=== PATIENT | female | born 1950 | race Caucasian/White ===

== ENCOUNTER 2022-03-16 14:45 | Outpatient (RCR) | payer MEDICARE, SELFPAY | END 2022-05-06 12:41 | disposition home or self-care (01) | PROVIDERS: PCP Physician Assistant Medical; Visit Provider Physician Assistant Medical | DX: M25.511 Pain in right shoulder (principal); Z51.89 Encounter for other specified aftercare | CPT/HCPCS: 97110; 97140; 97161 ==

== ENCOUNTER 2022-03-30 13:25 | Outpatient (CLI) | payer MEDICARE, SELFPAY ==
--- NOTE | 2022-03-30 13:40 | CRLHL7_ITS ---
For Patients: As a result of the Century Cures Act, medical imaging exams and procedure reports are released immediately into your electronic medical record. You may view this report before your referring provider. If you have questions, please contact your health care provider. BILATERAL SCREENING MAMMOGRAM WITH COMPUTER-AIDED DETECTION AND TOMOSYNTHESIS TECHNIQUE: CC and MLO views were obtained. These mammographic images have been obtained using full-field digital technique. These mammographic images were interpreted with the benefit of computer-aided detection. Breast Tomosynthesis was used in this interpretation. COMPARISON FILM: 07/16/20, 06/12/19, 03/10/18. FINDINGS: There are scattered areas of fibroglandular density IMPRESSION: There is no radiographic evidence for malignancy. ASSESSMENT: BI-RADS Category 1: Negative RECOMMENDATION: Routine screening mammogram in 1 year. A lay language report of this examination will be provided to the patient. Antonio Lazo M.D. Diagnostic Radiologist [email or web address] CARISSA/Dictated by: Antonio Lazo MD @ 03/31/2022 9:13:00 AM (Electronically Signed)
== END 2022-03-30 13:26 | disposition home or self-care (01) ==
LOC: MAMMO 13:26
PROVIDERS: PCP Physician Assistant Medical; Visit Provider Physician Assistant Medical
DX: Z12.31 Encounter for screening mammogram for malignant neoplasm of breast (principal)
CPT/HCPCS: 77063; 77067

== ENCOUNTER 2022-06-16 12:00 | Outpatient (CLI) | payer MEDICARE, SELFPAY ==
[2022-06-16 13:42] LABS: Albumin* 4.6 g/dL (3.3-5.0); Chloride* 105 mmol/L (96-114); Sodium* 141 mmol/L (135-149)
[2022-06-16 13:43] LABS: Potassium* 4.4 mmol/L (3.6-5.1)
[2022-06-16 13:45] LABS: Alkaline Phosphatase* 98 U/L (40-150); Aspartate Amino Transferase* 26 U/L (12-35); Bilirubin Total* 0.7 mg/dL (0.1-1.5); Blood Urea Nitrogen* 21 mg/dL (7-30); Carbon Dioxide* 27 mmol/L (20-32); Creatinine* 0.7 mg/dL (0.5-1.5); Estimated Glomerular Filt Rate 93 ml/min; Glucose* 197 mg/dL (60-115); Total Protein* 7.2 g/dL (6.0-8.3)
[2022-06-16 13:46] LABS: Alanine Aminotransferase* 32 U/L (4-35); Calcium* 11.1 mg/dL (8.4-10.6); HDL Cholesterol* 36 mg/dL (>=50); Triglycerides* 145 mg/dL (40-149)
[2022-06-16 14:52] LABS: TSH With Reflex to FT4* 0.021 uIU/mL (0.270-4.200)
[2022-06-16 16:06] LABS: Free T4 Free Thyroxine* 2.21 ng/dL (0.70-1.85)
[2022-06-17 19:05] LABS: Cholesterol* 111 mg/dL (90-199); LDL Cholesterol Calculated 46 mg/dL (<100)
== END 2022-06-16 12:01 | disposition home or self-care (01) ==
PROVIDERS: PCP Physician Assistant Medical; Visit Provider Physician Assistant Medical
DX: Z00.00 Encounter for general adult medical examination without abnormal findings (principal); E03.9 Hypothyroidism, unspecified; E11.9 Type 2 diabetes mellitus without complications; E78.5 Hyperlipidemia, unspecified; I10 Essential (primary) hypertension
CPT/HCPCS: 80053; 80061; 84439; 84443

== ENCOUNTER 2022-06-26 10:07 | Outpatient (CLI) | payer MEDICARE, SELFPAY | END 2022-06-26 10:08 | disposition home or self-care (01) | PROVIDERS: PCP Physician Assistant Medical; Visit Provider Physician Assistant Medical | DX: E83.52 Hypercalcemia | CPT/HCPCS: 82310; 83970; 84443 ==

== ENCOUNTER 2022-09-15 08:56 | Outpatient (CLI) | payer MEDICARE, SELFPAY | END 2022-09-15 08:57 | disposition home or self-care (01) | LOC: NFLDREF 09-16 00:12 | PROVIDERS: PCP Physician Assistant Medical; Referring Provider Physician Assistant Medical; Visit Provider Physician Assistant Medical | DX: E11.9 Type 2 diabetes mellitus without complications (principal); E03.9 Hypothyroidism, unspecified | CPT/HCPCS: 84443 ==

== ENCOUNTER 2023-01-19 08:31 | Outpatient (CLI) | payer MEDICARE, SELFPAY | END 2023-01-19 08:32 | disposition home or self-care (01) | LOC: NFLDREF 01-20 14:51 | PROVIDERS: PCP Physician Assistant Medical; Referring Provider Physician Assistant Medical; Visit Provider Physician Assistant Medical | DX: E03.9 Hypothyroidism, unspecified (principal); E11.9 Type 2 diabetes mellitus without complications; E78.5 Hyperlipidemia, unspecified; E83.52 Hypercalcemia; I10 Essential (primary) hypertension | CPT/HCPCS: 80053; 80061; 82043; 82570; 84439; 84443 ==

== ENCOUNTER 2023-04-06 09:54 | Outpatient (CLI) | payer MEDICARE, SELFPAY ==
--- NOTE | 2023-04-06 10:15 | CRLHL7_ITS ---
For Patients: As a result of the Cures Act, medical imaging exams and procedure reports are released immediately into your electronic medical record. You may view this report before your referring provider. If you have questions, please contact your health care provider. BILATERAL SCREENING MAMMOGRAM WITH COMPUTER-AIDED DETECTION AND TOMOSYNTHESIS TECHNIQUE: CC and MLO views were obtained. These mammographic images have been obtained using full-field digital technique. These mammographic images were interpreted with the benefit of computer-aided detection. Breast Tomosynthesis was used in this interpretation. COMPARISON FILM: 03/30/22, 07/15/20, 06/20/19. FINDINGS: There are scattered areas of fibroglandular density IMPRESSION: There is no radiographic evidence for malignancy. ASSESSMENT: BI-RADS Category 1: Negative RECOMMENDATION: Routine screening mammogram in 1 year. A lay language report of this examination will be provided to the patient. Antonio Lazo M.D. Diagnostic Radiologist [email or web address] ÓSCAR/mane R: 04/06/2023: Transcribed: 1:42 p.m. CARISSA/Dictated by: Antonio Lazo MD @ 04/06/2023 12:15:00 PM (Electronically Signed)
== END 2023-04-06 09:55 | disposition home or self-care (01) ==
LOC: MAMMO 09:54
PROVIDERS: PCP Physician Assistant Medical; Visit Provider Physician Assistant Medical
DX: Z12.31 Encounter for screening mammogram for malignant neoplasm of breast (principal)
CPT/HCPCS: 77063; 77067

== ENCOUNTER 2023-04-26 08:30 | Outpatient (CLI) | payer MEDICARE, SELFPAY | END 2023-04-26 08:31 | disposition home or self-care (01) | LOC: NFLDREF 04-28 12:09 | PROVIDERS: PCP Physician Assistant Medical; Referring Provider Physician Assistant Medical; Visit Provider Physician Assistant Medical | DX: E03.9 Hypothyroidism, unspecified (principal) | CPT/HCPCS: 84443 ==

== ENCOUNTER 2023-07-22 13:06 | Outpatient (CLI) | payer MEDICARE, SELFPAY | END 2023-07-22 13:07 | disposition home or self-care (01) | LOC: NFLDREF 07-23 05:51 | PROVIDERS: PCP Physician Assistant Medical; Referring Provider Physician Assistant Medical; Visit Provider Physician Assistant Medical | DX: E03.9 Hypothyroidism, unspecified (principal); E11.9 Type 2 diabetes mellitus without complications | CPT/HCPCS: 84439; 84443 ==

== ENCOUNTER 2023-10-18 19:45 | Inpatient (IN) | payer MEDICARE, SELFPAY ==
[2023-10-18] VITALS (8 sets, daily range): BP systolic 128–130; BP diastolic 62–90; PULSE 111–121; RESP 16–18; TEMP 38.4–39.3; O2SAT 93–97; BMI 27.4; BMI 28.3
--- NOTE | 2023-10-18 20:00 | ED_ITS ---
HPI - General Adult General Time Seen by Provider: 20:00 Date Seen: 10/18/23 Chief complaint: Fever Stated complaint: confusion, fall Time Seen by Provider: 10/18/23 19:46 Source: patient and RN notes reviewed Mode of arrival: ambulatory Limitations: no limitations History of Present Illness HPI narrative: This 73-year-old female was found down on the floor by a her bed after a nap. She went to take a nap about 5-6 hours ago per family that is with her, her found her next to the bed on the ground. Patient does not remember any issues with other than her right shoulder bothering her posteriorly before she went down for a nap. She does not remember falling out of bed she does not remember any falls. She declines any painful areas at this time. Initially the thought her speech seemed abnormal but her xfopezlu-pn-wij states she seems to be fine now as far as her speech. It is been found that she has a fever of 101.1. Patient states she has maybe been coughing. Her son who is present states there has been some changes to her diabetic medicines with dosage changes over the last couple months. She has had some intermittent nausea vomiting over that time. Related Data Home Medications Medication Instructions Recorded Confirmed aspirin 81 mg tablet,delayed 81 mg PO QDAY 01/26/22 05/11/23 release (Adult Aspirin Regimen) calcium carbonate 600 mg-vitamin 1 cap PO QDAY 01/26/22 05/11/23 D3 5 mcg (200 unit) capsule coenzyme Q10 100 mg capsule 100 mg PO QDAY 01/26/22 05/11/23 multivitamin 1 tab PO QDAY 01/26/22 05/11/23 omega 8-hfw-twg-fish oil 1,000 mg 1 cap PO QDAY 01/26/22 05/11/23 (120 mg-180 mg) capsule (Fish Oil) resveratrol-r.gray-dfchdbc-zslul 1 cap PO DAILY 01/26/22 05/11/23 sd-p.cusp.-C-pomg 200 mg-60 mg cap (Red Wine Extract) Previous Rx's Medication Instructions Recorded Diabetic Test Strips #100 ea 03/08/23 levothyroxine 137 mcg tablet 137 mcg PO QDAY #90 tabs 04/27/23 amlodipine 5 mg tablet 5 mg PO .HS #90 tabs 05/11/23 atorvastatin 20 mg tablet 20 mg PO QPM #90 tabs 05/11/23 metformin 1,000 mg tablet 1,000 mg PO BID #180 tabs 05/11/23 dulaglutide 1.5 mg/0.5 mL 1.5 mg (0.5 mL) subcut QWEEK #2 mL 05/18/23 subcutaneous pen injector (Trulicity) semaglutide 1 mg/dose (4 mg/3 mL) 1 mg (0.75 mL) subcut QWEEK 3 06/15/23 subcutaneous pen injector (Ozempic) months #9.75 mL trazodone 50 mg tablet 50 - 150 mg (1 - 3 x 50 mg) PO 06/28/23 DAILY #180 tabs irbesartan 300 mg tablet 300 mg PO QDAY #90 tabs 07/07/23 glipizide 10 mg tablet 10 mg PO BID #180 tabs 07/20/23 levothyroxine 125 mcg tablet 125 mcg PO QDAY #90 tabs 07/23/23 peg 3350-electrolytes 236 240 ml PO ONCE #4,000 mL 09/28/23 gram-22.74 gram-6.74 gram-5.86 gram solution (Golytely) Allergies Allergy/AdvReac Type Severity Reaction Status Date / Time lisinopril AdvReac Mild severe Verified 05/11/23 13:56 coughing Review of Systems Status of ROS: Reports: 6 or more systems reviewed and unremarkable except as noted in History and below (But question reliability given patient's fever seeming the altering her.) [facility] Medical History (Updated 10/18/23 @ 23:22 by Parag Knight MD) Sinus tachycardia ?R00.0 - Tachycardia, unspecified (ICD-10) Hypercalcemia ?E83.52 - Hypercalcemia (ICD-10) Insomnia ?G47.00 - Insomnia, unspecified (ICD-10) Osteopenia ?M85.80 - Other specified disorders of bone density and structure, unspecified site (ICD-10) Hypothyroidism ?E03.9 - Hypothyroidism, unspecified (ICD-10) Hypertension ?I10 - Essential (primary) hypertension (ICD-10) Hyperlipidemia ?E78.5 - Hyperlipidemia, unspecified (ICD-10) Diabetes mellitus, type II ?E11.9 - Type 2 diabetes mellitus without complications (ICD-10) Disorder of connective tissue ?M35.9 - Systemic involvement of connective tissue, unspecified (ICD-10) Surgical History History of colonoscopy ?Z98.890 - Other specified postprocedural states (ICD-10) History of Meckel's diverticulum ?Z87.19 - Personal history of other diseases of the digestive system (ICD-10) History of cervical polypectomy ?Z98.890 - Other specified postprocedural states (ICD-10) ?Z87.42 - Personal history of other diseases of the female genital tract (ICD-10) Family History Father Diabetes Social History What is your current living situation?: I presently have a place to live Problems where you live: no known problems Problems where you live details: NA In the past 12 months, utilities in danger of being shut off: no In past 12 months, lack of transportation kept you from medical appts, meetings, work, or getting things needed for daily living: no In the past 12 mos, have been you worried that your food would run out before you had money to buy more?: never true In the past 12 mos, the food you bought just didn't last and you didn't have money to buy more?: never true Highest level of school completed/degree received: Bachelor's degree Smoking Status: Never smoker Second hand tobacco smoke exposure: No How often do you have a drink containing alcohol: never AUDIT-C Alcohol total score: 0 Non-prescribed substance use: denies use Caffeine: No How often does anyone, including family, friends and others, physically hurt you : never How often does anyone, including family, friends and others, insult or talk down to you: never How often does anyone, including family, friends and others, threaten you with harm: never How often does anyone, including family, friends and others, scream or curse at you: never Little interest or pleasure in doing things: several days Feeling down, depressed, or hopeless: not at all service: No Exam Const: Vital Signs, click to edit/add: Vital Signs - 24 hr 10/18/23 19:51 10/18/23 20:28 10/18/23 20:30 Temperature 101.1 F H Pulse Rate 113 H 112 H Pulse Rate [Pulse Oximeter] 118 H Respiratory Rate 18 Blood Pressure [Ri ght Upper Arm] 130/62 Pulse Oximetry 94 97 96 Oxygen Delivery Me thod Room Air 10/18/23 20:49 10/18/23 22:16 Temperature Pulse Rate 111 H 121 H Pulse Rate [Pulse Oximeter] Respiratory Rate Blood Pressure [Ri ght Upper Arm] Pulse Oximetry 96 93 Oxygen Delivery Me thod This 73-year-old female is alert, interactive, no apparent distress. Her speech is normal. Pupils are equal round, sclera clear, conjugate gaze. Lips slightly dry, oropharynx dry without exudates or erythema however. Neck is supple, no adenopathy. She has no midline tenderness over her back, no traumatic changes over her back. Lungs are clear, good air entry, no wheezing or crackles, no tachypnea. CV regular rate and rhythm slightly fast, no murmur, normal S1-S2, no S3-S4. Abdomen is soft, nontender, nondistended, no organomegaly or masses. She has no lower extremity edema. She is moving extremities, following commands, no focal deficit of strength or sensation noted. No tremors noted. She does have a smell of urine. Documenting provider has reviewed patient's vital signs: yes Course Course ED Course: Will give patient some Tylenol for her fever. Proceed with plain x-rays of her chest and right shoulder. Need to rule out fracture of her shoulder. Shoulder pain could be coming from cardiac manifestations, chest etiology, trauma or even referred pain from GI issues like gallbladder. With the fever infectious etiology is of priority. Will do full complement of labs including blood cultures. Start L of normal saline. Given that she was found on the ground, will check a CK, will do a head CT and cervical spine CT noncontrast to rule out acute traumatic change with the imaging. Reevaluation(s) Time of Reevaluation #1: 22:07 Reevaluation #1: Patient's urinalysis is finally back, certainly appears to be positive for UTI. She is not hypotensive, 2 L of IV fluid have been ordered and with the antibiotics this will reach her 30 mils per kilos a which calculates to be 2040 mL. Patient is still alert, interactive. Have reviewed with them that she needs hospitalization for further monitoring. I do not feel we need any further imaging. Did subsequently speak with the hospitalist Dr. Knight, he will be down shortly to review the patient's case. Consultations Consultation #1: Have reviewed with Dr. Knight, he accepts the patient. Time: 22:22 Vital Signs Vital signs: Initial Vital Signs Temperature 101.1 F H 10/18/23 19:51 Temperature Source Temporal Artery Scan 10/18/23 19:51 Pulse Rate 118 H 10/18/23 19:51 Respiratory Rate 18 10/18/23 19:51 Blood Pressure 130/62 10/18/23 19:51 Blood Pressure Mean 84 10/18/23 19:51 Pulse Oximetry 94 10/18/23 19:51 Oxygen Delivery Method Room Air 10/18/23 19:51 Vital Signs Temperature 101.1 F H 10/18/23 19:51 Pulse Rate 118 H 10/18/23 19:51 Respiratory Rate 18 10/18/23 19:51 Blood Pressure 130/62 10/18/23 19:51 Pulse Oximetry 94 10/18/23 19:51 Oxygen Delivery Method Room Air 10/18/23 19:51 Temperature 102.7 F H 10/18/23 23:29 Pulse Rate 120 H 10/18/23 23:28 Respiratory Rate 16 10/18/23 23:40 Blood Pressure 128/90 H 10/18/23 23:29 Pulse Oximetry 94 10/18/23 23:40 Oxygen Delivery Method Room Air 10/18/23 23:40 Medications Administered Medications: Discontinued Medications Generic Name Dose Route Start Last Admin Trade Name Freq PRN Reason Stop Dose Admin Sodium Chloride 1,000 mls @ 500 mls/hr 10/18/23 20:06 10/18/23 22:20 0.9 % Sodium Chloride 1000 Ml IV 10/18/23 22:05 500 mls/hr .Q2H CANDICE Administration Sodium Chloride 1,000 mls @ 1,000 mls/hr 10/18/23 21:30 10/18/23 22:10 0.9 % Sodium Chloride 1000 Ml IV 10/18/23 22:29 1,000 mls/hr .Q1H CANDICE Administration Ceftriaxone Sodium 2 gm/ 100 mls @ 200 mls/hr 10/18/23 22:06 10/18/23 22:59 Sodium Chloride IVPB 10/18/23 22:07 Infused ONCE ONE Infusion Medical Decision Making Lab Data Lab results reviewed: Yes I reviewed the patient's lab results Labs: Lab Results 10/18/23 10/18/23 10/18/23 Range/Units 20:17 20:17 20:17 WBC 12.70 H (4.50-11.00) K/uL RBC 4.35 (4.00-5.20) m/uL Hgb 13.7 (12.0-16.0) gm/dL Hct 39.7 (33.0-51.0) % MCV 91 (80-100) fL MCH 32 (26-34) pg MCHC 35 (32-36) gm/dL RDW Coeff of Lise 12.1 (11.5-15.5) % Plt Count 209 (140-440) K/uL Neut % (Auto) 89.9 H (42.0-72.0) % Lymph % (Auto) 4.2 L (20-44) % [place] % (Auto) 5.5 (0.0-11.0) % Eos % (Auto) 0.0 (0.0-7.0) % Baso % (Auto) 0.1 (0.0-3.0) % Neut # (Auto) 11.40 H (1.7-7.0) K/uL Lymph # (Auto) 0.50 L (0.90-2.90) K/uL [place] # (Auto) 0.70 (0.00-0.90) K/UL Eos # (Auto) 0.00 (0.00-0.50) K/uL Baso # (Auto) 0.00 (0.00-0.30) K/uL Abs Immat Gran (auto) 0.00 (0.00-0.30) K/uL Imm/Tot Granulo (auto) 0.3 % Sodium 134 L (135-149) mmol/L Potassium 3.7 (3.6-5.1) mmol/L Chloride 104 (96-114) mmol/L Carbon Dioxide 22 (20-32) mmol/L Anion Gap 8 (7-15) mEq/L BUN 22 (7-30) mg/dL Creatinine 0.9 (0.5-1.5) mg/dL Estimated Creat Clear 40.22 Estimated GFR 68 ml/min Glucose 283 H (60-115) mg/dL Lactate 1.5 (0.5-1.9) mmol/L Calcium 10.5 (8.4-10.6) mg/dL Total Bilirubin 1.6 H (0.1-1.5) mg/dL AST 28 (12-35) U/L ALT 22 (4-35) U/L Alkaline Phosphatase 88 (40-150) U/L Total Creatine Kinase 85 Cancelled (41-117) U/L Troponin I < 0.01 L Cancelled (0.01-0.04) ng/mL C-Reactive Protein 25.5 H (0.5-1.0) mg/dL Total Protein 7.3 (6.0-8.3) g/dL Albumin 4.0 (3.3-5.0) g/dL Procalcitonin 1.38 H (<0.50) ng/mL Urine Color (Yellow) Urine Appearance (Clear) Urine pH (5.0-8.5) Ur Specific [place] (1.000-1.030) Urine Protein (Negative) Urine Glucose (UA) (Negative) Urine Ketones (Negative) Urine Blood (Negative) Urine Nitrite (Negative) Urine Bilirubin (Negative) Urine Urobilinogen (0.2-1.0) Ur Leukocyte Esterase (Negative) Urine RBC (0-2) Urine WBC (0-5) Ur Squamous Epith Cells (None-Few) Urine Bacteria (None) SARS-CoV-2 (PCR) Negative SARS-CoV-2 (Negative) Influenza Type A (PCR) Negative PCR FLU A (Negative) Influenza Type B (PCR) Negative PCR FLU B (Negative) RSV (PCR) Negative PCR RSV (Negative) 10/18/23 Range/Units 21:40 WBC (4.50-11.00) K/uL RBC (4.00-5.20) m/uL Hgb (12.0-16.0) gm/dL Hct (33.0-51.0) % MCV (80-100) fL MCH (26-34) pg MCHC (32-36) gm/dL RDW Coeff of Lise (11.5-15.5) % Plt Count (140-440) K/uL Neut % (Auto) (42.0-72.0) % Lymph % (Auto) (20-44) % [place] % (Auto) (0.0-11.0) % Eos % (Auto) (0.0-7.0) % Baso % (Auto) (0.0-3.0) % Neut # (Auto) (1.7-7.0) K/uL Lymph # (Auto) (0.90-2.90) K/uL [place] # (Auto) (0.00-0.90) K/UL Eos # (Auto) (0.00-0.50) K/uL Baso # (Auto) (0.00-0.30) K/uL Abs Immat Gran (auto) (0.00-0.30) K/uL Imm/Tot Granulo (auto) % Sodium (135-149) mmol/L Potassium (3.6-5.1) mmol/L Chloride (96-114) mmol/L Carbon Dioxide (20-32) mmol/L Anion Gap (7-15) mEq/L BUN (7-30) mg/dL Creatinine (0.5-1.5) mg/dL Estimated Creat Clear Estimated GFR ml/min Glucose (60-115) mg/dL Lactate (0.5-1.9) mmol/L Calcium (8.4-10.6) mg/dL Total Bilirubin (0.1-1.5) mg/dL AST (12-35) U/L ALT (4-35) U/L Alkaline Phosphatase (40-150) U/L Total Creatine Kinase (41-117) U/L Troponin I (0.01-0.04) ng/mL C-Reactive Protein (0.5-1.0) mg/dL Total Protein (6.0-8.3) g/dL Albumin (3.3-5.0) g/dL Procalcitonin (<0.50) ng/mL Urine Color Dark yellow (Yellow) Urine Appearance Cloudy A (Clear) Urine pH 5.0 (5.0-8.5) Ur Specific [place] 1.015 (1.000-1.030) Urine Protein 2+ A (Negative) Urine Glucose (UA) 3+ A (Negative) Urine Ketones 4+ A (Negative) Urine Blood 3+ A (Negative) Urine Nitrite Positive A (Negative) Urine Bilirubin Negative (Negative) Urine Urobilinogen 0.2 (0.2-1.0) Ur Leukocyte Esterase 2+ A (Negative) Urine RBC 2-5 A (0-2) Urine WBC >100 A (0-5) Ur Squamous Epith Cells Few (None-Few) Urine Bacteria Many A (None) SARS-CoV-2 (PCR) (Negative) Influenza Type A (PCR) (Negative) Influenza Type B (PCR) (Negative) RSV (PCR) (Negative) Imaging Data CT scan - head: Attestation: I have reviewed the pertinent imaging results. Radiologist's impression: Patient: UTE CARIAS Facility:?[facility] Patient ID:?[id number] Site Patient ID:?[id number] Site :?1950 Study:?CT-Head W/O-10/18/2023 9:17:45 PM Ordering Physician:EPYTON Final Report: INDICATION: Fall. Altered mental status. TECHNIQUE: CT head without contrast. COMPARISON: None available. FINDINGS: Cerebral parenchyma: No evidence of acute territorial infarct. 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 No acute intraparenchymal hemorrhage. No significant mass effect/midline shift. Normal diallo-white matter differentiation. Extra-axial spaces: No extra-axial collection or hemorrhage. Ventricles: Unremarkable. Calvarium: Intact. Visualized paranasal sinuses/mastoid air cells: Severe mucosal opacification of the left maxillary and frontal sinuses, and ethmoid air cells. Posterior fossa: No cerebellar tonsillar herniation. Visualized orbits: No acute abnormality. IMPRESSION: 1. No acute intracranial abnormality. Specifically, no evidence of acute intracranial hemorrhage. 2. 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 3. Left maxillary and left frontal sinusitis. Please note that all CT scans at this facility use dose modulation, iterative reconstruction, and/or weight-based dosing when appropriate to reduce radiation dose to as low as reasonably achievable. Dictated by Jannet Garcia MD @ 10/18/2023 9:35:49 PM (Electronic Signature) CT cervical spine: Attestation: I have reviewed the pertinent imaging results. Radiologist's impression: Patient: UTE CARIAS Facility:?[facility] Patient ID:?[id number] Site Patient ID:?[id number]. Site :?1950 Study:?CT-Spine Cervical W/O-10/18/2023 9:18:28 PM Ordering Physician:PEYTON Final Report: INDICATION: Trauma, fall. TECHNIQUE: CT cervical spine without contrast. COMPARISON: None FINDINGS: Vertebrae: Limited evaluation secondary to motion artifact and patient body habitus. No acute displaced fracture or traumatic malalignment. Discs and facet joints: Multilevel disc degenerative changes, worst at the level of C5-C6. There is fusion of the C2-C3 vertebral bodies as well as the facet joints. Extraspinal findings: Prevertebral soft tissues are within normal limits. Visualized airway is patent. Lung apices are grossly clear. IMPRESSION: No acute displaced fracture or traumatic malalignment, within limitations as described above. Please note that all CT scans at this facility use dose modulation, iterative reconstruction, and/or weight-based dosing when appropriate to reduce radiation dose to as low as reasonably achievable. Dictated by Jannet Garcia MD @ 10/18/2023 9:44:49 PM Chest x-ray: Attestation: I have reviewed the pertinent imaging results. Radiologist's impression: Patient: UTE CARIAS Facility:?[facility] Patient ID:?[id number] Site Patient ID:?[id number] Site :?1950 Study:?XRay-Chest 1V-10/18/2023 9:19:21 PM Ordering Physician:PEYTON Final Report: INDICATION: Altered mental status, found on floor, fever, chest injury fall TECHNIQUE: Chest radiograph 1 view COMPARISON: None FINDINGS: Mediastinum: The mediastinum is normal in appearance. The heart silhouette is normal in size and morphology. Lung: Small lung volumes with mild bibasilar subsegmental atelectasis noted. No sign of pleural effusion seen. No pneumothorax is identified. Bone and Soft tissue: Unremarkable for age. IMPRESSIONS: 1. Small lung volumes with mild bibasilar subsegmental atelectasis noted. 2. If there is a high clinical index of suspicion for rib injury, dedicated rib series radiographs are recommended. Dictated by Ramsey Parry MD @ 10/18/2023 9:29:12 PM Dictated by: Ramsey Parry MD @ 10/18/2023 21:32:24 (Electronic Signature) XR right shoulder: Attestation: I have reviewed the pertinent imaging results. Radiologist's impression: Patient: UTE CARIAS Facility:?[facility] Patient ID:?[id number] Site Patient ID:?[id number]. Site :?1950 Study:?XRay-Extremity Right SHOULDER 3V-10/18/2023 9:20:22 PM Ordering Physician:PEYTON Final Report: INDICATION: Altered mental status, found on floor, fever, shoulder pain, injury fall TECHNIQUE: Shoulder radiograph 3 views right COMPARISON: None FINDINGS: Bone: No acute fractures or aggressive bone lesions are identified. Moderate diffuse osteopenia is present. Joint: The glenohumeral joint is unremarkable. The acromioclavicular joint has mild osteoarthritis. Soft tissue: Unremarkable. A small focus of calcification is seen along the superior lateral rotator cuff which may be due to calcific tendinitis. No radiopaque foreign bodies are seen. IMPRESSIONS: 1. No acute osseous injuries or abnormalities are noted. 2. A small focus of calcification is seen along the superior lateral rotator cuff which may be due to calcific tendinitis. Dictated by Ramsey Parry MD @ 10/18/2023 9:33:38 PM Dictated by: Ramsye Parry MD @ 10/18/2023 21:33:40 (Electronic Signature) ECG Data Attestation: I personally reviewed and interpreted this ECG as follows: (Sinus tachycardia, 114 beats per minute.) Prior ECG tracings: not available for review Critical Care Time Critical Care Time Critical Care Time: No Discharge Plan Discharge Clinical Impression: Sepsis, Acute UTI
--- NOTE | 2023-10-18 20:05 | CT_ITS ---
Patient: UTE CARIAS Facility:?[facility] Patient ID:?[id number] Site Patient ID:?[id number] Site :?1950 Study:?CT-Head W/O-10/18/2023 9:17:45 PM Ordering Physician:PEYTON Final Report: INDICATION: Fall. Altered mental status. TECHNIQUE: CT head without contrast. COMPARISON: None available. FINDINGS: Cerebral parenchyma: No evidence of acute territorial infarct. 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 No acute intraparenchymal hemorrhage. No significant mass effect/midline shift. Normal diallo-white matter differentiation. Extra-axial spaces: No extra-axial collection or hemorrhage. Ventricles: Unremarkable. Calvarium: Intact. Visualized paranasal sinuses/mastoid air cells: Severe mucosal opacification of the left maxillary and frontal sinuses, and ethmoid air cells. Posterior fossa: No cerebellar tonsillar herniation. Visualized orbits: No acute abnormality. IMPRESSION: 1. No acute intracranial abnormality. Specifically, no evidence of acute intracranial hemorrhage. 2. 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 3. Left maxillary and left frontal sinusitis. Please note that all CT scans at this facility use dose modulation, iterative reconstruction, and/or weight-based dosing when appropriate to reduce radiation dose to as low as reasonably achievable. Dictated by Jannet Garcia MD @ 10/18/2023 9:35:49 PM Signed by:?Jannet Garcia MD @10/18/2023 9:35:49 PM (Electronic Signature)
--- NOTE | 2023-10-18 20:05 | CT_ITS ---
Patient: UTE CARIAS Facility:?[facility] Patient ID:?[id number] Site Patient ID:?[id number]. Site :?1950 Study:?CT-Spine Cervical W/O-10/18/2023 9:18:28 PM Ordering Physician:PEYTON Final Report: INDICATION: Trauma, fall. TECHNIQUE: CT cervical spine without contrast. COMPARISON: None FINDINGS: Vertebrae: Limited evaluation secondary to motion artifact and patient body habitus. No acute displaced fracture or traumatic malalignment. Discs and facet joints: Multilevel disc degenerative changes, worst at the level of C5-C6. There is fusion of the C2-C3 vertebral bodies as well as the facet joints. Extraspinal findings: Prevertebral soft tissues are within normal limits. Visualized airway is patent. Lung apices are grossly clear. IMPRESSION: No acute displaced fracture or traumatic malalignment, within limitations as described above. Please note that all CT scans at this facility use dose modulation, iterative reconstruction, and/or weight-based dosing when appropriate to reduce radiation dose to as low as reasonably achievable. Dictated by Jannet Garcia MD @ 10/18/2023 9:44:49 PM Signed by:?Jannet Garcia MD @10/18/2023 9:44:49 PM (Electronic Signature)
--- NOTE | 2023-10-18 20:05 | XR_ITS ---
Patient: UTE CARIAS Facility:?[facility] Patient ID:?[id number] Site Patient ID:?[id number] Site :?1950 Study:?XRay-Chest 1V-10/18/2023 9:19:21 PM Ordering Physician:PEYTON Final Report: INDICATION: Altered mental status, found on floor, fever, chest injury fall TECHNIQUE: Chest radiograph 1 view COMPARISON: None FINDINGS: Mediastinum: The mediastinum is normal in appearance. The heart silhouette is normal in size and morphology. Lung: Small lung volumes with mild bibasilar subsegmental atelectasis noted. No sign of pleural effusion seen. No pneumothorax is identified. Bone and Soft tissue: Unremarkable for age. IMPRESSIONS: 1. Small lung volumes with mild bibasilar subsegmental atelectasis noted. 2. If there is a high clinical index of suspicion for rib injury, dedicated rib series radiographs are recommended. Dictated by Ramsey Parry MD @ 10/18/2023 9:29:12 PM Dictated by: Ramsey Parry MD @ 10/18/2023 21:32:24 Signed by:?Ramsey Parry MD @10/18/2023 9:32:24 PM (Electronic Signature)
--- NOTE | 2023-10-18 20:07 | XR_ITS ---
Patient: UTE CARIAS Facility:?[facility] Patient ID:?[id number] Site Patient ID:?[id number]. Site :?1950 Study:?XRay-Extremity Right SHOULDER 3V-10/18/2023 9:20:22 PM Ordering Physician:PEYTON Final Report: INDICATION: Altered mental status, found on floor, fever, shoulder pain, injury fall TECHNIQUE: Shoulder radiograph 3 views right COMPARISON: None FINDINGS: Bone: No acute fractures or aggressive bone lesions are identified. Moderate diffuse osteopenia is present. Joint: The glenohumeral joint is unremarkable. The acromioclavicular joint has mild osteoarthritis. Soft tissue: Unremarkable. A small focus of calcification is seen along the superior lateral rotator cuff which may be due to calcific tendinitis. No radiopaque foreign bodies are seen. IMPRESSIONS: 1. No acute osseous injuries or abnormalities are noted. 2. A small focus of calcification is seen along the superior lateral rotator cuff which may be due to calcific tendinitis. Dictated by Ramsey Parry MD @ 10/18/2023 9:33:38 PM Dictated by: Ramsey Parry MD @ 10/18/2023 21:33:40 Signed by:?Ramsey Parry MD @10/18/2023 9:33:40 PM (Electronic Signature)
[2023-10-18 20:24] LABS: Lactate* 1.5 mmol/L (0.5-1.9)
[2023-10-18 20:25] LABS: Basophils Percent Auto 0.1 % (0.0-3.0); Hematocrit 39.7 % (33.0-51.0); Hemoglobin* 13.7 gm/dL (12.0-16.0); Immature Granulocytes Pct Auto 0.3 %; Lymphocytes Percent Auto 4.2 % (20-44); Mean Corpuscular HGB Conc 35 gm/dL (32-36); Mean Corpuscular Hemoglobin 32 pg (26-34); Mean Corpuscular Volume 91 fL (80-100); Monocytes Percent Auto 5.5 % (0.0-11.0); Neutrophils Percent Auto 89.9 % (42.0-72.0); Platelet Count* 209 K/uL (140-440); RDW Coefficient of Variation % 12.1 % (11.5-15.5); Red Blood Count 4.35 m/uL (4.00-5.20)
[2023-10-18 20:32] LABS: Slide Review Reflex No
[2023-10-18 20:58] LABS: Chloride* 104 mmol/L (96-114)
[2023-10-18 20:59] LABS: Potassium* 3.7 mmol/L (3.6-5.1); Sodium* 134 mmol/L (135-149)
[2023-10-18 21:01] LABS: Creatinine* 0.9 mg/dL (0.5-1.5); Est. Creatinine Clearance* 40.22; Estimated Glomerular Filt Rate 68 ml/min
[2023-10-18 21:02] LABS: Alanine Aminotransferase* 22 U/L (4-35); Alkaline Phosphatase* 88 U/L (40-150); Anion Gap 8 mEq/L (7-15); Aspartate Amino Transferase* 28 U/L (12-35); Bilirubin Total* 1.6 mg/dL (0.1-1.5); Blood Urea Nitrogen* 22 mg/dL (7-30); Calcium* 10.5 mg/dL (8.4-10.6); Carbon Dioxide* 22 mmol/L (20-32); Creatine Kinase* 85 U/L (41-117); Glucose* 283 mg/dL (60-115); Total Protein* 7.3 g/dL (6.0-8.3)
[2023-10-18 21:04] LABS: PCR FLU A Negative PCR FLU A (Negative); PCR FLU B Negative PCR FLU B (Negative); PCR RSV Negative PCR RSV (Negative); SARS PCR* Negative SARS-CoV-2 (Negative)
[2023-10-18 21:15] LABS: C Reactive Protein* 25.5 mg/dL (0.5-1.0); Troponin I* < 0.01 ng/mL (0.01-0.04)
[2023-10-18 21:19] LABS: Procalcitonin* 1.38 ng/mL (<0.50)
[2023-10-18 21:54] LABS: Appearance Urine Cloudy (Clear); Bilirubin Urine Negative (Negative); Blood Urine 3+ (Negative); Color Urine Dark yellow (Yellow); Glucose Urine 3+ (Negative); Ketones Urine 4+ (Negative); Leukocyte Esterase Urine 2+ (Negative); Nitrite Urine Positive (Negative); Protein Urine 2+ (Negative); Specific Gravity Urine 1.015 (1.000-1.030); Urobilinogen Urine 0.2 (0.2-1.0)
[2023-10-18] MEDS: 0.9 % SODIUM CHLORIDE 1000 ml 1,000 ML IV (22:10)
[2023-10-18] MEDS: 0.9 % SODIUM CHLORIDE 1000 ml 1,000 ML 500 ML IV (22:20)
[2023-10-18] MEDS: cefTRIAXone 2 GM in 0.9 % SODIUM CHLORIDE Mini-bag 100 ML IVPB (22:24)
[2023-10-18 22:25] LABS: WBC Urine >100 (0-5)
[2023-10-18 22:26] LABS: Bacteria Urine Many; Squamous Epithelial Cell Urine Few (None-Few)
--- NOTE | 2023-10-18 23:06 | P.IMHP_ITS ---
Hospitalist- H&P: HPI History of Present Illness Date Seen: 10/18/23 Chief complaint: confusion, fall Narrative: Denia Sanchez is a 73 year old woman presents to the emergency department this evening accompanied by her son and bikgakgu-[id number]. She has not been feeling well for the past day. Had some nausea and vomiting yesterday which is not an unusual phenomenon for her in which she ascribes to some of her medications. Today however she was feeling worn out and more sleepy and tired than usual. She took a nap in the afternoon and later her went to check on her and found her laying on the floor. Patient has no recall of falling out of bed. Does not remember much of today. No new complaints. Had right shoulder pain before she went to bed and still has the same quality and intensity of discomfort that she has had in the past which is minimal. Blood sugars have b een running between 140 and 180 which is typical for her. Denies fevers, rigors, diaphoresis. Denies dysuria, urgency, frequency, hematuria. Denies abdominal pain. Did have a few episodes of nausea and vomiting yesterday which is not unusual for her. None today. Has had decreased oral intake. Denies dyspepsia, dysphagia, odynophagia. Denies chest heaviness, pressure, tightness, or pain. Denies cough, dyspnea at rest, paroxysmal nocturnal dyspnea, orthopnea. Denies syncope or near-syncope. Denies orthostasis. Denies palpitations or chest fluttering. Acknowledges baseline elevated heart rates at rest with values of 100-110, longstanding condition for her. Denies diarrhea or constipation. States she is taking her medications as prescribed. No recent trauma or injury. No recent illness. No recent travel. No pets in the home. Review of Systems Status of ROS: Reports: 10 or more systems reviewed and unremarkable except as noted in History and below Narrative: Designates her , Yousif, as her primary power of state's attorney for health should that be required. Designates her son, Kit, as secondary power of state's attorney for health should that be required. Requests full resuscitation in the event of cardiopulmonary demise. [facility] Medical History (Updated 10/18/23 @ 23:22 by Parag Knight MD) Sinus tachycardia ?R00.0 - Tachycardia, unspecified (ICD-10) Hypercalcemia ?E83.52 - Hypercalcemia (ICD-10) Insomnia ?G47.00 - Insomnia, unspecified (ICD-10) Osteopenia ?M85.80 - Other specified disorders of bone density and structure, un specified site (ICD-10) Hypothyroidism ?E03.9 - Hypothyroidism, unspecified (ICD-10) Hypertension ?I10 - Essential (primary) hypertension (ICD-10) Hyperlipidemia ?E78.5 - Hyperlipidemia, unspecified (ICD-10) Diabetes mellitus, type II ?E11.9 - Type 2 diabetes mellitus without complications (ICD-10) Disorder of connective tissue ?M35.9 - Systemic involvement of connective tissue, unspecified (ICD-10) Surgical History History of colonoscopy ?Z98.890 - Other specified postprocedural states (ICD-10) History of Meckel's diverticulum ?Z87.19 - Personal history of other diseases of the digestive system (ICD-10) History of cervical polypectomy ?Z98.890 - Other specified postprocedural states (ICD-10) ?Z87.42 - Personal history of other diseases of the female genital tract (ICD-10) Family History Father Diabetes Social History Smoking Status: Never smoker Little interest or pleasure in doing things: several days Feeling down, depressed, or hopeless: not at all Meds Home Medications and Allergies Home Medications Medication Instructions Recorded Confirmed Type aspirin 81 mg tablet,delayed 81 mg PO QDAY 01/26/22 05/11/23 History release (Adult Aspirin Regimen) calcium carbonate 600 mg-vitamin 1 cap PO QDAY 01/26/22 05/11/23 History D3 5 mcg (200 unit) capsule coenzyme Q10 100 mg capsule 100 mg PO QDAY 01/26/22 05/11/23 History multivitamin 1 tab PO QDAY 01/26/22 05/11/23 History omega 4-cyf-hzm-fish oil 1,000 mg 1 cap PO QDAY 01/26/22 05/11/23 History (120 mg-180 mg) capsule (Fish Oil) resveratrol-rghassanjvcr-sdkedha-apzed 1 cap PO DAILY 01/26/22 05/11/23 History sd-p.cusp.-C-pomg 200 mg-60 mg cap (Red Wine Extract) Allergies Allergy/AdvReac Type Severity Reaction Status Date / Time lisinopril AdvReac Mild severe Verified 05/11/23 13:56 coughing Exam Narrative: Exam Narrative: I examined patient in the emergency department. She appears ill. She is awake, alert, interactive. Vision and hearing are adequate. Alert and oriented to self, place, time, situation at this time. Friendly and cooperative. Tympanic membranes normal. No conjunctival injection. No icterus. Conjugate gaze. Pupils equally round and reactive to light and accommodation. Dry buccal mucosa. Dentition in fair repair. Midline nasal septum. Midline trachea. Neck supple. No JVD or hepatojugular reflux. No carotid bruits. No head neck lymphadenopathy. Lungs are clear to auscultation. Chest wall excursions are full. No CVA tenderness. Heart tones with regular rhythm. Tachycardia. No obvious murmur, gallop, rub. PMI not laterally displaced. Abdomen with active bowel sounds, soft, nontender. No rebound or guarding. Extremities without edema. Skin is warm, dry, intact. No rashes. No focal motor neurologic deficits. Const: Vital Signs, click to edit/add: Vital Signs - 24 hr 10/18/23 19:51 10/18/23 20:28 10/18/23 20:30 Temperature 101.1 F H Pulse Rate 113 H 112 H Pulse Rate [Pulse Oximeter] 118 H Respiratory Rate 18 Blood Pressure [Ri ght Upper Arm] 130/62 Pulse Oximetry 94 97 96 Oxygen Delivery Me thod Room Air 10/18/23 20:49 10/18/23 22:16 Temperature Pulse Rate 111 H 121 H Pulse Rate [Pulse Oximeter] Respiratory Rate Blood Pressure [Ri ght Upper Arm] Pulse Oximetry 96 93 Oxygen Delivery Me thod Hospitalist - H&P: Result Labs Labs: Short CBC 10/18/23 Range/Units 20:17 WBC 12.70 H (4.50-11.00) K/uL Hgb 13.7 (12.0-16.0) gm/dL Hct 39.7 (33.0-51.0) % Plt Count 209 (140-440) K/uL BMP 10/18/23 20:17 Sodium 134 L Potassium 3.7 Chloride 104 Carbon Dioxide 22 BUN 22 Creatinine 0.9 Glucose 283 H Calcium 10.5 Cardiac Enzymes 10/18/23 10/18/23 10/18/23 Range/Units 20:17 20:17 20:17 Total Creatine Kinase 85 Cancelled (41-117) U/L Troponin I < 0.01 L Cancelled (0.01-0.04) ng/mL Liver Function 10/18/23 Range/Units 20:17 Total Bilirubin 1.6 H (0.1-1.5) mg/dL AST 28 (12-35) U/L ALT 22 (4-35) U/L Alkaline Phosphatase 88 (40-150) U/L Albumin 4.0 (3.3-5.0) g/dL Urine 10/18/23 Range/Units 21:40 Urine Color Dark yellow (Yellow) Urine Appearance Cloudy A (Clear) Urine pH 5.0 (5.0-8.5) Ur Specific [place] 1.015 (1.000-1.030) Urine Protein 2+ A (Negative) Urine Glucose (UA) 3+ A (Negative) ECG ECG interpretation date: 10/18/23 Interpretation: Sinus tachycardia without acute ischemic changes. Assessment and Plan Assessment and plan (1) Sepsis: Problem comment: - fever, tachycardia, leukocytosis, urinary tract infection based on urinalysis - 30 mL/kilogram IV fluid bolus given despite normal lactate - initiated ceftriaxone 1 g IV Q 24 hours - urine culture and blood cultures obtained and results are pending. Status: Acute (2) Acute UTI: Problem comment: - 10/18/2023: Abnormal urine analysis with ketones, nitrite, white blood cells Status: Acute (3) Sinus tachycardia: Problem comment: - baseline even at rest Status: Acute (4) Diabetes mellitus, type II: Problem comment: - check hemoglobin A1c - sliding scale insulin while in hospital Status: Acute Plan 1. Reviewed impression with patient, son, nncswfrv-sq-txs. 2. Answered their questions. 3. They agree with above stated plans and recommendations 4. In addition to the the 30 mL/kilogram of IV fluids, will run 1 more L of normal saline at 125 mL/hour then saline lock. 5. Monitor hemodynamics including orthostatic blood pressure and pulse, and daily weight. Total Time Spent Total Time Spent: 70 minute
[2023-10-18] MEDS: ACETAMINOPHEN 325 MG TABLET 650 MG PO (23:54)
[2023-10-19] VITALS (14 sets, daily range): BP systolic 107–142; BP diastolic 50–75; PULSE 93–115; RESP 16–28; TEMP 37.3–38.1; O2SAT 91–93
--- NOTE | 2023-10-19 00:05 | PC.NURSE ---
Pt came to floor with temp of 102.7, Dr notified, ordered Scheduled Tylenol. Bolus from ED to continue then fluids can start at 125/hr.
[2023-10-19] MEDS: ASPIRIN 81 MG TABLET EC PO ×2 (00:34→20:48)
[2023-10-19] MEDS: 0.9 % SODIUM CHLORIDE 1000 ml 1,000 ML 125 ML IV (01:02)
--- NOTE | 2023-10-19 03:53 | PC.NURSE ---
Pt came to Floor @ 2300. Pt was weak and fatigued with fever of 102.7. After Scheduled Tylenol and Fluids Temp came down to 99.2 oral. Pt Said she feels better than when she came in. Stable on feet. Sinus tach is a normal HR
--- NOTE | 2023-10-19 03:57 | PC.NURSE ---
Previous note stopped Typing. Normal HR is sinus tach for pt. Oriented x3.
[2023-10-19] MEDS: LEVOTHYROXINE 112 MCG TABLET PO (06:29)
[2023-10-19] MEDS: LEVOTHYROXINE 25 MCG TABLET PO (06:29)
[2023-10-19 06:56] LABS: HCO3 VBG 24 mmol/L (21-28); Lactate* 0.9 mmol/L (0.5-1.9); PCO2 VBG 39 mmHG (40-50); PO2 VBG < 30.1 mmHG (25-47); pH VBG 7.399 (7.32-7.43)
[2023-10-19 07:05] LABS: Basophils Absolute Auto 0.01 K/uL (0.00-0.30); Basophils Percent Auto 0.1 % (0.0-3.0); Hematocrit 32.8 % (33.0-51.0); Hemoglobin* 11.2 gm/dL (12.0-16.0); Immature Granulocytes Abs Auto 0.02 K/uL (0.00-0.30); Immature Granulocytes Pct Auto 0.2 %; Lymphocytes Percent Auto 6.8 % (20-44); Mean Corpuscular HGB Conc 34 gm/dL (32-36); Mean Corpuscular Hemoglobin 32 pg (26-34); Mean Corpuscular Volume 93 fL (80-100); Monocytes Percent Auto 7.1 % (0.0-11.0); Neutrophils Percent Auto 85.8 % (42.0-72.0); Platelet Count* 178 K/uL (140-440); RDW Coefficient of Variation % 12.4 % (11.5-15.5); Red Blood Count 3.53 m/uL (4.00-5.20); White Blood Count* 9.32 K/uL (4.50-11.00)
--- NOTE | 2023-10-19 07:13 | PM.IMPN1 ---
Progress Note: A&P Assessment and plan (1) Sepsis: Problem details: - as evidenced by WBC > 12, HR 110s, T 102 , + urine and blood cultures - 30 mL/kilogram IV fluid bolus given ED, fluids continued until hospital day 1 - initiated ceftriaxone 1 g IV Qd (10/17), broadened to Zosyn on 10/18 given + blood culture - B Cx + for GNR on 10/18 Status: Acute (2) Acute UTI: Problem details: - 10/18/2023: Abnormal urine analysis with ketones, nitrite, white blood cells Status: Acute (3) Sinus tachycardia: Problem details: - baseline HR in the 90s per chart review, possibly iatrogenic (hyperthyroidism) Status: Acute (4) Diabetes mellitus, type II: Problem details: - A1c 6.6 on 10/18/23 - sliding scale insulin while in hospital Status: Acute (5) Hypothyroidism: Problem details: - iatrogenic hyperthyroidism, stop Levothyroxine and f/u with PCP for recheck (given age, would consider appropriate TSH to be in the 5-7 range) Status: Acute Plan - per above - Lovenox for ppx - follow blood cultures; when medically appropriate, home with family Subjective Date Seen: 10/19/23 Interval history: Denia was admitted to the hospital last night for for fever, confusion, possible fall at home. Workup revealed sepsis with UTI is most likely source. Ceftriaxone was initiated IV. Also noted was suppressed TSH and elevated T4. This morning, Denia is feeling better. She has ordered breakfast and would like to try ambulating. Urine culture and 1/2 blood cultures + for GNRs. Exam Narrative: Exam Narrative: GEN: Alert and answering questions appropriately, shivering without rigors, appears ill but nontoxic HEENT: EOMIs bilaterally, no scleral icterus CV: Sinus tachycardia, soft systolic murmur without concerning features R: LCTA bilaterally without concerning wheezing Back: mild discomfort over bilateral flank regions Ext: wwp, no concerning edema Skin: No concerning skin lesions or rashes on exposed skin Neuro: No focal deficits, gait not observed Psych: Appropriate Const: Vital Signs, click to edit/add: Vital Signs - 24 hr 10/18/23 19:51 10/18/23 20:28 10/18/23 20:30 Temperature 101.1 F H Pulse Rate 113 H 112 H Pulse Rate [Left R adial] Pulse Rate [Pulse Oximeter] 118 H Pulse Rate [orthos tatic lying Left R adial] Pulse Rate [orthos tatic sitting Left Brachial] Pulse Rate [orthos tatic standing Lef t Radial] Respiratory Rate 18 Blood Pressure [Le ft Arm] Blood Pressure [Ri ght Upper Arm] 130/62 Blood Pressure [or thostatic lying Le ft Arm] Blood Pressure [or thostatic sitting] Blood Pressure [or thostatic standing Left Arm] Pulse Oximetry 94 97 96 Oxygen Delivery Me thod Room Air 10/18/23 20:49 10/18/23 22:16 10/18/23 23:28 Temperature 102.7 F H Pulse Rate 111 H 121 H Pulse Rate [Left R adial] 120 H Pulse Rate [Pulse Oximeter] Pulse Rate [orthos tatic lying Left R adial] Pulse Rate [orthos tatic sitting Left Brachial] Pulse Rate [orthos tatic standing Lef t Radial] Respiratory Rate 16 Blood Pressure [Le ft Arm] 128/90 H Blood Pressure [Ri ght Upper Arm] Blood Pressure [or thostatic lying Le ft Arm] Blood Pressure [or thostatic sitting] Blood Pressure [or thostatic standing Left Arm] Pulse Oximetry 96 93 94 Oxygen Delivery Me thod Room Air 10/18/23 23:29 10/18/23 23:40 10/19/23 02:23 Temperature 102.7 F H 99.2 F Pulse Rate Pulse Rate [Left R adial] 100 Pulse Rate [Pulse Oximeter] Pulse Rate [orthos tatic lying Left R adial] Pulse Rate [orthos tatic sitting Left Brachial] Pulse Rate [orthos tatic standing Lef t Radial] Respiratory Rate 16 16 16 Blood Pressure [Le ft Arm] 128/90 H 111/59 L Blood Pressure [Ri ght Upper Arm] Blood Pressure [or thostatic lying Le ft Arm] Blood Pressure [or thostatic sitting] Blood Pressure [or thostatic standing Left Arm] Pulse Oximetry 94 94 91 Oxygen Delivery Me thod Room Air Room Air Room Air 10/19/23 02:24 Temperature Pulse Rate Pulse Rate [Left R adial] Pulse Rate [Pulse Oximeter] Pulse Rate [orthos tatic lying Left R adial] 99 Pulse Rate [orthos tatic sitting Left Brachial] 102 H Pulse Rate [orthos tatic standing Lef t Radial] 104 H Respiratory Rate Blood Pressure [Le ft Arm] Blood Pressure [Ri ght Upper Arm] Blood Pressure [or thostatic lying Le ft Arm] 111/59 L Blood Pressure [or thostatic sitting] 115/55 L Blood Pressure [or thostatic standing Left Arm] 107/50 L Pulse Oximetry Oxygen Delivery Me thod Labs Labs: Laboratory Results - last 24 hr 10/18/23 10/18/23 10/18/23 20:17 20:17 20:17 WBC 12.70 H RBC 4.35 Hgb 13.7 Hct 39.7 MCV 91 MCH 32 MCHC 35 RDW Coeff of Lise 12.1 Plt Count 209 Neut % (Auto) 89.9 H Lymph % (Auto) 4.2 L [place] % (Auto) 5.5 Eos % (Auto) 0.0 Baso % (Auto) 0.1 Neut # (Auto) 11.40 H Lymph # (Auto) 0.50 L [place] # (Auto) 0.70 Eos # (Auto) 0.00 Baso # (Auto) 0.00 Abs Immat Gran (auto) 0.00 Imm/Tot Granulo (auto) 0.3 VBG pH VBG pCO2 VBG pO2 VBG HCO3 Sodium 134 L Potassium 3.7 Chloride 104 Carbon Dioxide 22 Anion Gap 8 BUN 22 Creatinine 0.9 Estimated Creat Clear 40.22 Estimated GFR 68 Glucose 283 H Lactate 1.5 Calcium 10.5 Total Bilirubin 1.6 H AST 28 ALT 22 Alkaline Phosphatase 88 Total Creatine Kinase 85 Cancelled Troponin I < 0.01 L Cancelled C-Reactive Protein 25.5 H Total Protein 7.3 Albumin 4.0 Procalcitonin 1.38 H Urine Color Urine Appearance Urine pH Ur Specific [place] Urine Protein Urine Glucose (UA) Urine Ketones Urine Blood Urine Nitrite Urine Bilirubin Urine Urobilinogen Ur Leukocyte Esterase Urine RBC Urine WBC Ur Squamous Epith Cells Urine Bacteria SARS-CoV-2 (PCR) Negative SARS-CoV-2 Influenza Type A (PCR) Negative PCR FLU A Influenza Type B (PCR) Negative PCR FLU B RSV (PCR) Negative PCR RSV 10/18/23 10/19/23 21:40 06:26 WBC RBC Hgb Hct MCV MCH MCHC RDW Coeff of Lise Plt Count Neut % (Auto) Lymph % (Auto) [place] % (Auto) Eos % (Auto) Baso % (Auto) Neut # (Auto) Lymph # (Auto) [place] # (Auto) Eos # (Auto) Baso # (Auto) Abs Immat Gran (auto) Imm/Tot Granulo (auto) VBG pH 7.399 VBG pCO2 39 L VBG pO2 < 30.1 VBG HCO3 24 Sodium Potassium Chloride Carbon Dioxide Anion Gap BUN Creatinine Estimated Creat Clear Estimated GFR Glucose Lactate 0.9 Calcium Total Bilirubin AST ALT Alkaline Phosphatase Total Creatine Kinase Troponin I C-Reactive Protein Total Protein Albumin Procalcitonin Urine Color Dark yellow Urine Appearance Cloudy A Urine pH 5.0 Ur Specific [place] 1.015 Urine Protein 2+ A Urine Glucose (UA) 3+ A Urine Ketones 4+ A Urine Blood 3+ A Urine Nitrite Positive A Urine Bilirubin Negative Urine Urobilinogen 0.2 Ur Leukocyte Esterase 2+ A Urine RBC 2-5 A Urine WBC >100 A Ur Squamous Epith Cells Few Urine Bacteria Many A SARS-CoV-2 (PCR) Influenza Type A (PCR) Influenza Type B (PCR) RSV (PCR)
[2023-10-19 07:16] LABS: Slide Review Reflex No
[2023-10-19] MEDS: ACETAMINOPHEN 325 MG TABLET 650 MG PO ×4 (07:49→20:48)
[2023-10-19] MEDS: glipiZIDE 5 MG TABLET 10 MG PO ×2 (07:49→17:18)
[2023-10-19] MEDS: INSULIN ASPART 100 UNIT/ML SUBCUT ×4 (07:53→20:59)
[2023-10-19 08:10] LABS: Hemoglobin A1C* 6.6 % (0-5.6)
[2023-10-19 08:26] LABS: Chloride* 109 mmol/L (96-114)
[2023-10-19 08:27] LABS: Potassium* 3.7 mmol/L (3.6-5.1); Sodium* 137 mmol/L (135-149)
[2023-10-19 08:29] LABS: Creatinine* 0.9 mg/dL (0.5-1.5); Est. Creatinine Clearance* 40.22; Estimated Glomerular Filt Rate 68 ml/min
[2023-10-19 08:30] LABS: Anion Gap 4 mEq/L (7-15); Blood Urea Nitrogen* 20 mg/dL (7-30); Calcium* 9.3 mg/dL (8.4-10.6); Carbon Dioxide* 24 mmol/L (20-32); Glucose* 180 mg/dL (60-115); Magnesium* 1.6 mg/dL (1.5-2.6); Phosphorus* 2.2 mg/dL (2.5-4.5)
[2023-10-19 08:35] LABS: Thyroid Stimulating Hormone* 0.132 uIU/mL (0.270-4.20)
[2023-10-19 08:46] LABS: Troponin I* < 0.01 ng/mL (0.01-0.04)
[2023-10-19] MEDS: IRBESARTAN 150 MG TABLET 300 MG PO (08:57)
--- NOTE | 2023-10-19 11:43 | REH.OT ---
Orders received for OT eval and treat. Patient up at melecio in room. No concerns with ADLs. No formal OT warranted.
--- NOTE | 2023-10-19 13:55 | CT_ITS ---
Patient: UTE CARIAS Facility:?[facility] Patient ID:?[id number] Site Patient ID:?[id number]. Site :?1950 Study:?CT-Abdomen/Pelvis W/O-10/19/2023 2:19:43 PM Ordering Physician:MAGALI FERNANDEZ Final Report: INDICATION: UTI, SEPSIS, EVALUATION FOR PYELO HX MECKELS DIVERTICULUM TECHNIQUE: CT abdomen and pelvis without contrast COMPARISON: None. FINDINGS: Kidney/ureters: Right proximal ureter/ureteropelvic junction there is a obstructing stone measuring 6 x 6 x 8 millimeters. This results in moderate to severe right-sided hydronephrosis with perinephric inflammation and edematous appearing kidney. There is also periureteral inflammation along the more distal ureter. Cannot exclude ascending urinary tract infection/pyelonephritis on this unenhanced CT given clinical indication. Punctate left nonobstructing intrarenal calculi are noted. No evidence of bladder wall thickening. Liver/gallbladder/bile ducts: The liver is normal in size, shape and attenuation. Cholelithiasis within a decompressed gallbladder. No biliary dilatation. Spleen/pancreas/adrenal glands: The spleen, adrenal glands and pancreas are within normal limits. GI tract: No bowel obstruction. Small duodenal diverticulum. Colonic diverticulosis without evidence of diverticulitis. Reported Meckel`s diverticulum is not well visualized on this unenhanced CT. Abdominal wall/omentum/peritoneum: No free air or significant free fluid. Lymph nodes: No lymphadenopathy. Pelvis: Calcified uterine fibroids. Lower chest: Linear bibasilar atelectasis. IMPRESSION: 1. Right proximal ureter/ureteropelvic junction there is a obstructing stone measuring 6 x 6 x 8 millimeters. This results in moderate to severe right-sided hydronephrosis with perinephric inflammation and edematous appearing kidney. There is also periureteral inflammation along the more distal ureter. Cannot exclude ascending urinary tract infection/pyelonephritis on this unenhanced CT given clinical indication. 2. Colonic diverticulosis without evidence of diverticulitis. 3. Calcified uterine fibroids. Please note that all CT scans at this facility use dose modulation, iterative reconstruction, and/or weight-based dosing when appropriate to reduce radiation dose to as low as reasonably achievable. Dictated by Fred Gorman MD @ 10/19/2023 2:44:11 PM Signed by:?Fred Gorman MD @10/19/2023 2:44:11 PM (Electronic Signature)
[2023-10-19] MEDS: PIPERACILLIN/TAZOBACTAM 3.375 GM in 0.9 % SODIUM CHLORIDE Mini-bag 100 ML IVPB ×2 (14:25→19:57)
--- NOTE | 2023-10-19 15:46 | XR_ITS ---
Patient: UTE CARIAS Facility:?[facility] Patient ID:?[id number] Site Patient ID:?[id number] Site :?1950 Study:?XRay-Chest 1 VIEW PORTABLE-10/19/2023 5:51:41 PM Ordering Physician:EULALIA Final Report: INDICATION: Short of breath. TECHNIQUE: Chest 1 portable view. COMPARISON: 10/18/2023. FINDINGS: No pneumothorax or pleural effusion. Mild linear scarring or atelectasis in the right mid lung and bilateral lung bases. No focal airspace consolidation. Mild enlargement of the cardiac silhouette may be related to portable technique. No definite pulmonary edema. Upper abdomen and osseous structures as imaged show no acute abnormality. IMPRESSION: No radiographic evidence of pneumonia. Dictated by Shaw Freeman MD @ 10/19/2023 6:14:43 PM Signed by:?Shaw Freeman MD @10/19/2023 6:14:43 PM (Electronic Signature)
[2023-10-19] MEDS: METFORMIN 1,000 MG TABLET 1000 MG PO (17:18)
--- NOTE | 2023-10-19 19:00 | PC.NURSE ---
End of Shift: The patient is pleasant and alert and orientated. VS on RA... febrile throughout the shift. Scheduled Tylenol was given with adequate relief intermittently. This afternoon the patient was noticed to be tachypneic @ 28 per min. O2 % was reassuring at 88-90%. The patient reported flank pain in her R back.. the high respirations and flank pain were reported to Dr Andujar ultrasound was completed and then chest xray was ordered by Dr Montilla. Incentive spirometer education was provided. IV abx were changed after culture came back positive. UP SBA with no walker. Calls appropriately. Tolerating a diet well... poor PO intake IV fluids remain @ 125 hr. Angelic LEHMAN BSN
[2023-10-19 19:48] LABS: NT Pro B Type NatriureticPept* 370 pg/mL
[2023-10-19] MEDS: ATORVASTATIN 10 MG TABLET 20 MG PO (20:48)
[2023-10-19] MEDS: TRAZODONE HCL 50 MG TABLET PO (20:49)
[2023-10-19] MEDS: ENOXAPARIN 40 MG/0.4 ML INJ SUBCUT (20:49)
[2023-10-20] MEDS: PIPERACILLIN/TAZOBACTAM 3.375 GM in 0.9 % SODIUM CHLORIDE Mini-bag 100 ML IVPB ×3 (02:03→14:24)
[2023-10-20 02:59] VITALS: BP 128/69; PULSE 89; RESP 24; TEMP 38.1; O2SAT 91
[2023-10-20 06:51] LABS: Lactate* 0.6 mmol/L (0.5-1.9)
--- NOTE | 2023-10-20 06:52 | PC.NURSE ---
End of shift note [id number]: Pt noted to be alert & oriented and able to make needs known. She transfers/ambulates with SBA. IV to to L forearm patent and SL. Pt noted to have temp of 100.6 with 0300 vital signs. Pt remains on IV antibiotic. She remains on scheduled Tylenol and has been denying pain when asked throughout the shift. Blood glucose of 190 at HS last evening. Pt slept well throughout the night and has been continent of bowel and bladder.
[2023-10-20 07:11] LABS: Basophils Absolute Auto 0.02 K/uL (0.00-0.30); Basophils Percent Auto 0.4 % (0.0-3.0); Eosinophils Absolute Auto 0.06 K/uL (0.00-0.50); Eosinophils Percent Auto 1.1 % (0.0-7.0); Hematocrit 31.5 % (33.0-51.0); Hemoglobin* 10.8 gm/dL (12.0-16.0); Immature Granulocytes Abs Auto 0.01 K/uL (0.00-0.30); Immature Granulocytes Pct Auto 0.2 %; Lymphocytes Percent Auto 12.3 % (20-44); Mean Corpuscular HGB Conc 34 gm/dL (32-36); Mean Corpuscular Hemoglobin 31 pg (26-34); Mean Corpuscular Volume 91 fL (80-100); Monocytes Percent Auto 6.1 % (0.0-11.0); Neutrophils Percent Auto 79.9 % (42.0-72.0); Platelet Count* 178 K/uL (140-440); RDW Coefficient of Variation % 12.3 % (11.5-15.5); Red Blood Count 3.45 m/uL (4.00-5.20); White Blood Count* 5.59 K/uL (4.50-11.00)
[2023-10-20 07:12] VITALS: PULSE 95
[2023-10-20 07:19] LABS: Slide Review Reflex No
[2023-10-20 07:20] LABS: Albumin* 2.9 g/dL (3.3-5.0); Chloride* 112 mmol/L (96-114); Potassium* 3.2 mmol/L (3.6-5.1); Sodium* 139 mmol/L (135-149)
[2023-10-20 07:22] LABS: Creatinine* 0.7 mg/dL (0.5-1.5); Est. Creatinine Clearance* 40.22; Estimated Glomerular Filt Rate 92 ml/min
[2023-10-20 07:23] LABS: Alanine Aminotransferase* 45 U/L (4-35); Alkaline Phosphatase* 76 U/L (40-150); Anion Gap 5 mEq/L (7-15); Aspartate Amino Transferase* 51 U/L (12-35); Bilirubin Total* 0.7 mg/dL (0.1-1.5); Blood Urea Nitrogen* 16 mg/dL (7-30); Carbon Dioxide* 22 mmol/L (20-32); Glucose* 123 mg/dL (60-115); Total Protein* 5.8 g/dL (6.0-8.3)
[2023-10-20 07:24] LABS: Calcium* 9.4 mg/dL (8.4-10.6)
[2023-10-20 08:00] VITALS: BP 149/66; PULSE 89; PULSE 99; RESP 24; TEMP 37.6; O2SAT 91
--- NOTE | 2023-10-20 08:24 | P.DS_ITS ---
Transfer Discharge Sum: Prov Provider Date Seen: 10/20/23 Date of admission: 10/18/23 23:27 Primary care physician: Aixa Cary PA-C Admitting clinician: Parag Knight Attending physician on admission: Parag Knight Consults: 10/18/23 23:27 Consult to Occupational Therapy [CONS] Routine Comment: Reason(s) for OT Consult:: Evaluate and Treat Any Restrictions?:: No Restrictions Consult to Physical Therapy [CONS] Routine Comment: Reason(s) for PT Consult:: Evaluate and Treat Any Restrictions?:: No Restrictions Attending physician on discharge: Delilah Andujar Discharging clinician: Delilah Andujar Anticipated date of transfer: 10/20/23 Receiving physician/facility: [facility] DS: Diagnosis Discharge Diagnosis (1) Sepsis: Status: Acute Problem details: - as evidenced by WBC > 12, HR 110s, T 102 , + urine and blood cultures - 30 mL/kilogram IV fluid bolus given ED, fluids continued until hospital day 1 - initiated Ceftriaxone (10/17), broadened to Zosyn on 10/18 given + blood culture - Urine culture + for E Coli (2) Nephrolithiasis: Status: Acute Problem details: - noted on CT, formal read below: 1. Right proximal ureter/ureteropelvic junction there is a obstructing stone measuring 6 x 6 x 8 millimeters. This results in moderate to severe right-sided hydronephrosis with perinephric inflammation and edematous appearing kidney. There is also periureteral inflammation along the more distal ureter. Cannot exclude ascending urinary tract infection/pyelonephritis on this unenhanced CT given clinical indication. 2. Colonic diverticulosis without evidence of diverticulitis. 3. Calcified uterine fibroids. (3) Acute UTI: Status: Acute Problem details: - E Coli (4) Diabetes mellitus, type II: Status: Acute Problem details: - A1c 6.6 on 10/18/23 - sliding scale insulin while in hospital (5) Hypothyroidism: Status: Acute Problem details: - per chart review, TSH has been suppressed since October 2022 - likely iatrogenic hyperthyroidism, was on 137mcg of Synthroid as an outpatient - stopped Levothyroxine on 10/17, f/u TSH with PCP in 4-6 weeks (consider goal TSH 4-6 given age) Transfer Discharge Sum: Med Medications Active and Home Medications: Home Medications aspirin 81 mg tablet,delayed release (Adult Aspirin Regimen) 81 mg PO DAILY 01/26/22 [History Confirmed 10/19/23] calcium carbonate 600 mg-vitamin D3 5 mcg (200 unit) capsule 1 cap PO DAILY 01/26/22 [History Confirmed 10/19/23] coenzyme Q10 100 mg capsule 100 mg PO DAILY 01/26/22 [History Confirmed 10/19/23] multivitamin 1 tab PO DAILY 01/26/22 [History Confirmed 10/19/23] omega 9-eeg-pfm-fish oil 1,000 mg (120 mg-180 mg) capsule (Fish Oil) 1 cap PO DAILY 01/26/22 [History Confirmed 10/19/23] resveratrol-r.dkhp-zpyneqn-mmwiw sd-p.cusp.-C-pomg 200 mg-60 mg cap (Red Wine Extract) 1 cap PO DAILY 01/26/22 [History Confirmed 10/19/23] Diabetic Test Strips #100 ea 03/08/23 [Rx Confirmed 05/11/23] atorvastatin 20 mg tablet 20 mg PO QPM #90 tabs 05/11/23 [Rx Confirmed 10/19/23] semaglutide 1 mg/dose (4 mg/3 mL) subcutaneous pen injector (Ozempic) 1 mg (0.75 mL) subcut QWEEK 3 months #9.75 mL 06/15/23 [Rx Confirmed 10/19/23] trazodone 50 mg tablet 50 - 150 mg (1 - 3 x 50 mg) PO DAILY #180 tabs 06/28/23 [Rx Confirmed 10/19/23] glipizide 10 mg tablet 10 mg PO BID #180 tabs 07/20/23 [Rx Confirmed 10/19/23] peg 3350-electrolytes 236 gram-22.74 gram-6.74 gram-5.86 gram solution (Golytely) 240 ml PO ONCE #4,000 mL 09/28/23 [Rx Confirmed 10/19/23] amlodipine 5 mg tablet 5 mg PO HS 10/19/23 [History Confirmed 10/19/23] irbesartan 300 mg tablet 300 mg PO DAILY 10/19/23 [History Confirmed 10/19/23] levothyroxine 125 mcg tablet 125 mcg PO .qod #45 tabs 10/19/23 [Rx] levothyroxine 137 mcg tablet 137 mcg PO .qod #45 tabs 10/19/23 [Rx Confirmed 10/19/23] metformin 1,000 mg tablet 1,000 mg PO BIDWM 10/19/23 [History Confirmed 10/19/23] Active Medications Acetaminophen (Acetaminophen 325 Mg Tablet) 650 mg PO QID [facility] Last Admin: 10/19/23 20:48 Dose: 650 mg Aspirin (Aspirin 81 Mg Tablet Ec) 81 mg PO 2100 [facility] Last Admin: 10/19/23 20:48 Dose: 81 mg Atorvastatin Calcium (Atorvastatin 10 Mg Tablet) 20 mg PO HS [facility] Last Admin: 10/19/23 20:48 Dose: 20 mg Enoxaparin Sodium (Enoxaparin 40 Mg/0.4 Ml Inj) 40 mg [facility]BCUT [facility] Last Admin: 10/19/23 20:49 Dose: 40 mg Glipizide (Glipizide 5 Mg Tablet) 10 mg PO BIDWM [facility] Last Admin: 10/19/23 17:18 Dose: 10 mg Piperacillin Sod/Tazobactam (Sod 3.375 gm/ Sodium Chloride) 100 mls @ 200 mls/hr IVPB Q6H [facility] Last Infusion: 10/20/23 02:47 Dose: Infused Insulin Aspart (Insulin Aspart 100 Unit/Ml) 0 unit SUBCUT [facility]; Protocol Last Admin: 10/19/23 20:59 Dose: 2 unit Irbesartan (Irbesartan 150 Mg Tablet) 300 mg PO DAILY [facility] Last Admin: 10/19/23 08:57 Dose: 300 mg Metformin HCl (Metformin 1,000 Mg Tablet) 1,000 mg PO BIDWM [facility] Last Admin: 10/19/23 17:18 Dose: 1,000 mg Sodium Chloride (Sodium Chloride 0.9 % (Flush) 10 Ml Syringe) 5 ml IVF .FLUSH PRN Sodium Chloride (Sodium Chloride 0.9 % (Flush) 10 Ml Syringe) 5 ml IVF BID [facility] Last Admin: 10/19/23 20:49 Dose: Not Given Trazodone HCl (Trazodone Hcl 50 Mg Tablet) 50 - 150 mg PO HS [facility] Last Admin: 10/19/23 20:49 Dose: 100 mg Transfer Discharge Sum: Hosp Hospital Course Hospital course: Denia Sanchez is a 73 year old female who presented to the hospital with fever and confusion on 10/18/23, had clinical s/sx of sepsis with + UTI. Treated with IVF resuscitation, Ceftriaxone empirically initiated. On hospital day 1, had + Blood (/2) and Urine culture for GNR, antibiotics broadened to Zosyn. Given persistent fevers and mild bilateral flank pain, CT obtained to evaluate for pyelonephritis and patient was found to have an obstructing UPJ stone. Urology consulted (Dr. Bermeo) given findings, and patient will be transferred to [facility] for further management. She is NPO (had 3 sips of hot chocolate at 0745 on 10/20/23) and has been accepted by the hospitalist team (Dr. Vaughn) for transfer. Other notable findings during stay are above. Time Spent with Patient Time attestation: Total time spent providing and/or coordinating transfer services: Total time spent: Greater than 30 minutes Exam Narrative: Exam Narrative: GEN: Alert and sitting comfortably in bedside chair HEENT: EOMIs bilaterally, no scleral icterus CV: RRR, No concerning murmurs R: LCTA bilaterally without concerning wheezing, air movement adequate Ext: wwp, no concerning edema Skin: No concerning skin lesions or rashes on exposed skin Neuro: Nonfocal Psych: Appropriate Const: Vital Signs, click to edit/add: Vital Signs - 24 hr 10/19/23 10:51 10/19/23 13:09 10/19/23 14:30 Temperature 99.5 F 99.8 F H 99.6 F Pulse Rate Pulse Rate [Left R adial] 104 H 115 H Respiratory Rate 16 28 H Blood Pressure [Le ft Arm] 108/53 L Blood Pressure [Ri ght Arm] 142/67 H Pulse Oximetry 93 92 Oxygen Delivery Me thod Room Air 10/19/23 15:00 10/19/23 15:00 10/19/23 15:45 Temperature Pulse Rate 114 H Pulse Rate [Left R adial] Respiratory Rate 28 H 28 H Blood Pressure [Le ft Arm] Blood Pressure [Ri ght Arm] Pulse Oximetry 93 Oxygen Delivery Me thod Room Air 10/19/23 17:19 10/19/23 19:50 10/19/23 23:00 Temperature 99.7 F H 99.8 F H Pulse Rate Pulse Rate [Left R adial] 97 93 Respiratory Rate 24 22 Blood Pressure [Le ft Arm] Blood Pressure [Ri ght Arm] 125/59 L Pulse Oximetry 91 Oxygen Delivery Me thod Room Air 10/19/23 23:12 10/19/23 23:15 10/19/23 23:20 Temperature 99.4 F Pulse Rate 95 Pulse Rate [Left R adial] 93 Respiratory Rate 22 22 Blood Pressure [Le ft Arm] Blood Pressure [Ri ght Arm] 137/75 Pulse Oximetry 93 93 Oxygen Delivery Me thod Room Air Room Air 10/20/23 02:59 10/20/23 07:12 Temperature 100.6 F H Pulse Rate 95 Pulse Rate [Left R adial] 89 Respiratory Rate 24 Blood Pressure [Le ft Arm] Blood Pressure [Ri ght Arm] 128/69 Pulse Oximetry 91 Oxygen Delivery Me thod Room Air Discharge Plan Discharge Disposition: Xfer Other Date of Admission: 10/18/23 23:27 Attending Provider on Discharge: Delilah Andujar Primary Care Provider: Aixa Cary Condition: Guarded Anticipated Discharge Date/Time: 10/20/23 13:01 Discharge Medications: Continued calcium carbonate-vitamin D3 600 mg-5 mcg (200 unit) capsule 1 cap PO DAILY coenzyme Q10 100 mg capsule 100 mg PO DAILY omega 0-ead-zek-fish oil [Fish Oil] 1,000 mg (120 mg-180 mg) capsule 1 cap PO DAILY htincc-zku-ouq-qaxbf-vtl-I-pom [Red Wine Extract] 200-60 mg capsule 1 cap PO DAILY multivitamin Tablet 1 tab PO DAILY Held atorvastatin 20 mg tablet 20 mg PO QPM Qty: 90 3RF Hold Instructions: Resume on 10/22/23. until d/c from [facility] amlodipine 5 mg tablet 5 mg PO HS Hold Instructions: Resume on 10/22/23. metformin 1,000 mg tablet 1,000 mg PO BIDWM Hold Instructions: Resume on 10/22/23. npo irbesartan 300 mg tablet 300 mg PO DAILY Hold Instructions: Resume on 10/22/23. npo aspirin [Adult Aspirin Regimen] 81 mg tablet,delayed release (DR/EC) 81 mg PO DAILY Hold Instructions: Resume on 10/22/23. until d/c from [facility] Ozempic 1 mg/dose (4 mg/3 mL) pen injector 1 mg subcut QWEEK 90 Days Qty: 9.75 3RF Hold Instructions: Resume on 10/27/23. until post [facility] hospitalization trazodone 50 mg tablet 50 - 150 mg PO DAILY Qty: 180 2RF Hold Instructions: Resume on 10/22/23. npo glipizide 10 mg tablet 10 mg PO BID Qty: 180 0RF Hold Instructions: Resume on 10/22/23. NPO Discontinued peg 3350-electrolytes [Golytely] 236-22.74-6.74 -5.86 gram recon soln 240 ml PO ONCE Qty: 4000 0RF Rx Instructions: 4pm day prior to procedure. Drink 8oz glass every 15 minutes until 1/2 of solution is gone. 6 hours prior to procedure drink 8 oz glass every 15 minutes until remaining solution gone. levothyroxine 137 mcg tablet 137 mcg PO .qod Qty: 45 0RF levothyroxine 125 mcg tablet 125 mcg PO .qod Qty: 45 0RF Rx Instructions: Alternate daily with 137mcg of levothyroxine. No Action (DME) Diabetic Test Strips Misc See Rx Instructions .Route Qty: 100 3RF Rx Instructions: As directed Discharge Orders: Discharge Order (Routine); Ordered 10/20/23 Ordered By: Delilah Andujar Additional Instructions: to [facility] Diet Detail: npo for transfer Follow Up Appointments: Aixa Cary PA-C [Primary Care Provider] - Forms: MyHealth Info Instructions
[2023-10-20 09:14] VITALS: TEMP 37.6
[2023-10-20] MEDS: ACETAMINOPHEN 325 MG TABLET 650 MG PO ×2 (09:14→13:26)
[2023-10-20] MEDS: SODIUM CHLORIDE 0.9 % (FLUSH) 10 ML SYRINGE 5 ML IVF (09:14)
[2023-10-20 11:10] VITALS: BP 131/70; PULSE 92; RESP 24; TEMP 36.9; O2SAT 92
[2023-10-20 13:06] VITALS: TEMP 36.9
[2023-10-20] MEDS: POTASSIUM CHLORIDE 10 MEQ, LIDOCAINE 1 % 1 ML in 0.9 % SODIUM CHLORIDE 100 ml 100 ML 106 MEQ IVPB (13:26)
--- NOTE | 2023-10-20 14:41 | PC.NURSE ---
Pt. will be transferring to [facility] this afternoon. Xqttc-we-pfuyl report given to Nurse Taylor at [facility] - [facility] 1847.
--- NOTE | 2023-10-20 17:28 | PC.NURSE ---
Discharge. Pt was transferred to [place] @ 1522 by [facility]. Pt is very pleasant. alert x4, pain in flanks 4-6/10. she is getting po tylenol and she did not want anything else. She is up with SBA. IV to to L forearm patent. on IV antibiotic. . Blood sugar of 111, and 139 and pt was happy about that. she is NPO. she is voiding with no problems.
== END 2023-10-20 17:22 | disposition short-term general hospital (02) | DRG 872 ==
LOC: ED 20:16 → MEDSURG 23:01
PROVIDERS: Family Medicine; Admitting Provider Internal Medicine; Emergency Provider Family Medicine; PCP Physician Assistant Medical; Visit Provider Internal Medicine
DX: A41.51 Sepsis due to Escherichia coli [E. coli] (principal); N39.0 Urinary tract infection, site not specified; Z16.24 Resistance to multiple antibiotics; N13.2 Hydronephrosis with renal and ureteral calculous obstruction; R00.0 Tachycardia, unspecified; B96.20 Unspecified Escherichia coli [E. coli] as the cause of diseases classified elsewhere; E11.9 Type 2 diabetes mellitus without complications; Z79.84 Long term (current) use of oral hypoglycemic drugs; Z79.85 Long-term (current) use of injectable non-insulin antidiabetic drugs; E03.9 Hypothyroidism, unspecified
CPT/HCPCS: 36415; 70450; 71045; 72125; 73030; 74176; 80048; 80053; 81001; 82550; 82803; 82962; 83036; 83605; 83735; 83880; 84100; 84145; 84439; 84443; 84484; 85025; 86140; 87040; 87086; 87186; 87631; 93005; 94761; 97116; 97161; 99284; 99285; A9270; J0696; J1650; J2543; J3480; J7030

== ENCOUNTER 2023-10-20 15:20 | Outpatient (CLI) | payer MEDICARE, SELFPAY | END 2023-10-20 15:21 | disposition home or self-care (01) | LOC: AMB 10-28 02:50 | PROVIDERS: PCP Physician Assistant Medical; Visit Provider Family Medicine | DX: N20.0 Calculus of kidney (principal); A41.9 Sepsis, unspecified organism | CPT/HCPCS: A0425; A0429 ==

== ENCOUNTER 2023-11-02 10:24 | Outpatient (CLI) | payer MEDICARE, SELFPAY | END 2023-11-02 10:25 | disposition home or self-care (01) | LOC: NFLDREF 11-21 21:44 | PROVIDERS: PCP Physician Assistant Medical; Referring Provider Physician Assistant Medical; Visit Provider Physician Assistant Medical | DX: N39.0 Urinary tract infection, site not specified (principal) | CPT/HCPCS: 87086 ==

== ENCOUNTER 2023-12-14 14:16 | Outpatient (CLI) | payer MEDICARE, SELFPAY | END 2023-12-14 14:17 | disposition home or self-care (01) | LOC: NFLDREF 12-17 06:00 | PROVIDERS: PCP Physician Assistant Medical; Referring Provider Physician Assistant Medical; Visit Provider Physician Assistant Medical | DX: A41.9 Sepsis, unspecified organism (principal); Z09 Encounter for follow-up examination after completed treatment for conditions other than malignant neoplasm | CPT/HCPCS: 83735 ==

== ENCOUNTER 2023-12-28 19:16 | Outpatient (CLI) | payer MEDICARE, SELFPAY | END 2023-12-28 19:17 | disposition home or self-care (01) | LOC: NFLDREF 12-31 03:21 | PROVIDERS: PCP Physician Assistant Medical; Referring Provider Physician Assistant Medical; Visit Provider Physician Assistant | DX: N39.0 Urinary tract infection, site not specified (principal); R31.9 Hematuria, unspecified; B96.20 Unspecified Escherichia coli [E. coli] as the cause of diseases classified elsewhere | CPT/HCPCS: 87086; 87186 ==

== ENCOUNTER 2024-01-11 14:21 | Outpatient (CLI) | payer MEDICARE, SELFPAY | END 2024-01-11 14:22 | disposition home or self-care (01) | LOC: NFLDREF 01-12 11:14 | PROVIDERS: PCP Physician Assistant Medical; Referring Provider Physician Assistant Medical; Visit Provider Physician Assistant | DX: R31.9 Hematuria, unspecified (principal); N39.0 Urinary tract infection, site not specified; R11.10 Vomiting, unspecified; H92.09 Otalgia, unspecified ear; R11.11 Vomiting without nausea | CPT/HCPCS: 87086; 87186 ==

== ENCOUNTER 2024-01-27 14:27 | Outpatient (CLI) | payer MEDICARE, SELFPAY | END 2024-01-27 14:28 | disposition home or self-care (01) | LOC: LKVREF 14:28 | PROVIDERS: PCP Physician Assistant Medical; Visit Provider Nurse Practitioner Family | DX: N39.0 Urinary tract infection, site not specified (principal); E11.9 Type 2 diabetes mellitus without complications; E05.00 Thyrotoxicosis with diffuse goiter without thyrotoxic crisis or storm | CPT/HCPCS: 84439; 84443; 87086; 87186 ==

== ENCOUNTER 2024-02-15 09:40 | Outpatient (CLI) | payer MEDICARE, SELFPAY ==
--- NOTE | 2024-02-15 10:00 | CRLHL7_ITS ---
For Patients: As a result of the Century Cures Act, medical imaging exams and procedure reports are released immediately into your electronic medical record. You may view this report before your referring provider. If you have questions, please contact your health care provider. Indication: UTI. HX OF STONES/ LITHOTRIPSY AND STENT NOW REMOVED. Technique: Noncontrast CT abdomen and pelvis Please note that all CT scans at this facility use dose modulation, iterative reconstruction, and/or weight-based dosing when appropriate to reduce radiation dose to as low as reasonably achievable. Comparison: 10/19/2023 Findings: Interval clearing of the previously noted stone from the proximal right ureter and resolution of right-sided urinary tract obstruction. Stone within the left proximal ureter is present which measures 3.5 millimeters and there is left hydronephrosis and proximal left hydroureter. Adrenal glands normal. Stones in the gallbladder again noted. Noncontrast enhanced liver unremarkable. Normal spleen. Pancreas within normal limits. Duodenal diverticulum. No adenopathy. Calcified uterine fibroid. No bladder stone. Sigmoid diverticulosis. No diverticulitis. No bowel obstruction. Mild scarring in both lung bases. No pleural effusion. No fracture. No enlarged lymph nodes. Impression: Clearing of the previously noted right proximal ureteral stone with resolution of the right-sided hydroureteronephrosis. 3.5 millimeter stone in the left proximal ureter with left-sided obstruction. Sigmoid diverticulosis. Cholelithiasis. Please note that all CT scans at this facility use dose modulation, iterative reconstruction, and/or weight-based dosing when appropriate to reduce radiation dose to as low as reasonably achievable. Dictated by Antonio Lazo MD @ 02/15/2024 3:54:31 PM (Electronically Signed)
== END 2024-02-15 09:41 | disposition home or self-care (01) ==
PROVIDERS: PCP Nurse Practitioner Family; Visit Provider Physician Assistant
DX: N39.0 Urinary tract infection, site not specified (principal); K57.30 Diverticulosis of large intestine without perforation or abscess without bleeding; K80.20 Calculus of gallbladder without cholecystitis without obstruction
CPT/HCPCS: 74176

== ENCOUNTER 2024-03-09 16:30 | Outpatient (CLI) | payer MEDICARE, SELFPAY | END 2024-03-09 16:31 | disposition home or self-care (01) | LOC: NFLDREF 03-12 18:50 | PROVIDERS: PCP Nurse Practitioner Family; Referring Provider Nurse Practitioner Family; Visit Provider Physician Assistant | DX: N39.0 Urinary tract infection, site not specified (principal) | CPT/HCPCS: 87086 ==

== ENCOUNTER 2024-04-07 09:53 | Outpatient (CLI) | payer MEDICARE, SELFPAY ==
--- NOTE | 2024-04-07 10:15 | CRLHL7_ITS ---
For Patients: As a result of the Century Cures Act, medical imaging exams and procedure reports are released immediately into your electronic medical record. You may view this report before your referring provider. If you have questions, please contact your health care provider. BILATERAL SCREENING MAMMOGRAM WITH COMPUTER-AIDED DETECTION AND TOMOSYNTHESIS TECHNIQUE: CC and MLO views were obtained. These mammographic images have been obtained using full-field digital technique. These mammographic images were interpreted with the benefit of computer-aided detection. Breast Tomosynthesis was used in this interpretation. COMPARISON FILM: 04/06/23, 03/20/22, 07/16/20. FINDINGS: There are scattered areas of fibroglandular density IMPRESSION: There is no radiographic evidence for malignancy. ASSESSMENT: BI-RADS Category 1: Negative RECOMMENDATION: Routine screening mammogram in 1 year. A lay language report of this examination will be provided to the patient. Antonio Lazo M.D. Diagnostic Radiologist [email or web address] CARISSA/Dictated by: Antonio Lazo MD @ 04/07/2024 11:37:00 AM (Electronically Signed)
== END 2024-04-07 09:54 | disposition home or self-care (01) ==
LOC: MAMMO 09:55
PROVIDERS: PCP Nurse Practitioner Family; Visit Provider Nurse Practitioner Family
DX: Z12.31 Encounter for screening mammogram for malignant neoplasm of breast (principal)
CPT/HCPCS: 77063; 77067

== ENCOUNTER 2024-04-20 09:50 | Outpatient (CLI) | payer MEDICARE, SELFPAY ==
--- NOTE | 2024-04-20 11:26 | P.ANES_ITS ---
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
== END 2024-04-20 09:51 | disposition home or self-care (01) ==
LOC: OP CLINIC 09:50
PROVIDERS: PCP Nurse Practitioner Family; Visit Provider Surgery
DX: Z12.11 Encounter for screening for malignant neoplasm of colon (principal); Z86.0100 Personal history of colon polyps, unspecified; D12.8 Benign neoplasm of rectum; K57.30 Diverticulosis of large intestine without perforation or abscess without bleeding
CPT/HCPCS: 00811; 45385; 88305; 99100; J2704

== ENCOUNTER 2024-05-31 13:16 | Outpatient (CLI) | payer MEDICARE, SELFPAY | END 2024-05-31 13:17 | disposition home or self-care (01) | LOC: LKVREF 13:17 | PROVIDERS: PCP Nurse Practitioner Family; Visit Provider Nurse Practitioner Family | DX: E78.2 Mixed hyperlipidemia (principal); E11.9 Type 2 diabetes mellitus without complications; Z79.84 Long term (current) use of oral hypoglycemic drugs | CPT/HCPCS: 80061; 82043; 82570 ==

== ENCOUNTER 2024-10-19 07:45 | Outpatient (CLI) | payer MEDICARE, SELFPAY | END 2024-10-19 07:46 | disposition home or self-care (01) | LOC: NFLDREF 10-27 18:37 | PROVIDERS: PCP Nurse Practitioner Family; Referring Provider Nurse Practitioner Family | DX: N39.0 Urinary tract infection, site not specified (principal); B96.89 Other specified bacterial agents as the cause of diseases classified elsewhere | CPT/HCPCS: 87086 ==

== ENCOUNTER 2024-11-15 09:50 | Outpatient (CLI) | payer MEDICARE, SELFPAY | END 2024-11-15 09:51 | disposition home or self-care (01) | LOC: NFLDREF 11-17 22:10 | PROVIDERS: PCP Nurse Practitioner Family; Referring Provider Nurse Practitioner Family; Visit Provider Nurse Practitioner Family | DX: N39.0 Urinary tract infection, site not specified (principal); B69.89 Cysticercosis of other sites | CPT/HCPCS: 87086 ==

== ENCOUNTER 2025-04-22 17:08 | Emergency (ER) | payer MEDICARE, SELFPAY ==
[2025-04-22 17:10] VITALS: BP 156/74; PULSE 84; RESP 18; TEMP 36; O2SAT 97; BMI 29.3
--- OUTSIDE RECORDS SUMMARY | 2025-04-22 17:10 | XMS_ITS | Clinical Summary ---
Author Organization [facility] Address [address] [place] [address] Care Team Providers Care [employer] Name Role Phone Paul Campos MD Primary Care Provider Source Comments You are receiving this document as you are listed as the primary care provider,follow-up provider, or the patient has been referred to you for consultation.This is in compliance with the Medicare and[facility] EHR Incentive Program,which states Providers who transition their patient to another setting of careor provider of care or refers their patient to another provider of care shouldprovide summary care record for each transition of care or referral. [facility] Allergies Active Allergy Reactions Criticality Noted Date Comments Lisinopril Other, see comments 12/11/2013 HUT Reaction: Cough Active Problems Problem Noted Date Diagnosed Date Current use of aspirin 04/16/2017 Osteopenia of both thighs 10/27/2016 Overview (04/13/2019): DEXA 05/30/2012: Lumbar T score -0.5, femoral neck T score -1.6, total femur T score -1.3 DEXA October 2016: Lumbar T score -0.8, left hip -1.6, right hip -2.0 - continue calcium and vitamin D and consider recheck in 2 years. Obesity, diabetes, and hypertension syndrome 03/2017 History of colon polyps 08/08/2015 Overview (04/13/2019): 07/2011 - 1 sessile cecal polyp, Hyperplastic Polyp. Diabetic eye exam 10/11/2014 Overview (04/13/2019): PRIMARY EYE CARE, 12/11/16 - No diabetic Retinopathy HCD (health care directive) 07/11/2013 Overview (04/14/2019): HCD at home, family has copy Connective tissue disease Overview (04/14/2019): NOS, positive MAGALY Hypothyroidism Dyslipidemia HTN (hypertension) Type 2 diabetes mellitus wit hout complication, without long-term current use of insulin Resolved Problems Problem Noted Date Diagnosed Date Resolved Date Routine general medical exam ination at a health care facility 03/10/2010 12/11/2014 Overview (04/13/2019): Normal Routine History And Physical Adult Metabolic syndrome 8 Immunizations Immunization Administration Dates Next Due Influenza IIV3 (Trivalent) F luzomichael Highdose, 65+ Yrs (66100) 03/18/2017 Influenza IIV4 (Quadrivalent) 0.5mL (56711) 02/13,03/14/2015,02/12/2014 Influenza aIIV3 65+ Years (Fluad) 03/29/2017 Influenza, Unspecified Formulation 02/13/2012, PCV13 (Prevnar) 10/15/2016 PPSV23 (Pneumovax) 10/29/2017,07/12/2012 Tdap 04/23/2010 Zoster (Zostavax) 03/24/2012 Family History Medical History Relation Name Comments Diabetes Father Hypertension Father Other Father Glaucoma Heart Failure Mother Hypertension Mother Osteoporosis Mother Hypertension Brother Cooper Other Maternal Grandfather kidney cancer Other Maternal Grandmother bladder cancer Cancer Maternal Uncle 3 Cancer, Prostate Maternal Uncle 4 Cancer, Breast Other 2 Cousin x 3, m om's side Cancer Paternal Uncle 2 Good Health Son 1 Homero Good Health Son 2 Shaw Good Health Son 3 Rush Relation Name Status Comments Father Mother 06/2016 Brother Dallas Alive Maternal Grandfather Maternal Grandmother (Age 95) tu mor on esophagus Maternal Uncle 1 Maternal Uncle 2 Maternal Uncle 3 Maternal Uncle 4 Other 1 Other 2 Paternal Grandfather threshi ng accident Paternal Grandmother MVA Paternal Uncle 1 Paternal Uncle 2 Son 1 Homero Alive Son 2 Shaw Alive Son 3 Rush Alive Social History Tobacco Use Types Packs/Day Years Used Date Smoking Tobacco: Never Smokeless Tobacco: Never Alcohol Use Standard Drinks/Week Comments Yes 2 (1 standard drink = 0.6 oz pur e alcohol) occasional Comments No Sex and Gender Information Value Date Recorded Sex Assigned at Not on file Legal Sex Female 6:56 AM CDT Gender Identity Not on file Sexual Orientation Not on file Last Filed Vital Signs Vital Sign Reading Time Taken Comments Blood Pressure 142/84 05/10/2015 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 Pulse - - Temperature 36.6 C (97.8 F) 05/10/2015 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 Respiratory Rate - - Oxygen Saturation - - Inhaled Oxygen Concentration - - Weight 83.7 kg (184 lb 9.6 oz) 05/10/2015 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 Height - - Body Mass Index - - Plan of Treatment Health Maintenance Due Date Last Done Comments Colonoscopy 1951 Diabetes: Albumin/Creatinine Ratio, Urine 1950 Diabetes: Creatinine 1950 Diabetes: Foot Exam 1950 Diabetes: HGBA1C 1950 Diabetes: Lipid Panel 1950 Hep B Immunization Discussion 1950 Hep C Screening (Preventive Services) 1950 Medicare Welcome Visit 1950 Pneumococcal PCV20 Immunization Discussion 1950 Mammogram 1950 Zoster/Shingles Vaccine (2 of 3) 05/19/2012 03/24/2012 Diabetes: Eye Exam 10/12/2015 10/11/2014 (C ompleted), 10/03/2013 (Completed), 09/13/2012 (Completed) DTaP/Tdap/Td Vaccine (2 - Tdap) 04/23/2020 04/23/2010 COVID-19 Vaccine ( - season) 2025 Influenza Vaccine (#1) 2025 7, 03/18/2017, 03/11/2016, Additional history exists RSV Vaccine (1 - 1-dose 75+ series) 2026 Pneumococcal Vaccine 50+ Yrs Completed , 10/15/2016, 07/12/2012 HepA Vaccine Aged Out No longer eligi ble based on patient's age to complete this topic HepB Vaccine Aged Out No longer eligi ble based on patient's age to complete this topic Hib Vaccine Aged Out No longer eligi ble based on patient's age to complete this topic IPV (Polio) Vaccine Aged Out No longe r eligible based on patient's age to complete this topic MCV4 Vaccine Aged Out No longer eligi ble based on patient's age to complete this topic Meningococcal B Vaccine Aged Out No l onger eligible based on patient's age to complete this topic Insurance [employer] [address] [place] [id number] Care Teams [employer]er [employer] Relationship Specialty Start Date End Date Paul Campos MD [address] [place] [address] [place] [id number] PCP - General 04/07/12
--- OUTSIDE RECORDS SUMMARY | 2025-04-22 17:10 | XMS_ITS | Data Portability ---
Author Organization [place] [facility] Address [address] [place] [address] Care Team Providers Care Fisher Name Role Phone MERI CULP Primary Care Provider Assessment Encounter Date Assessment Date Assessment LastModified by Organization Details LastModified Time 10/24/2023 10/24/2023 This visit was performed via [employer] device with a total face to face time of 7.5 minutes. This patient is being seen today for a [facility] appointment after hospitalization. *Reason for admission: UTI, nephrolithiasis *I have reviewed the external medical records: Hospital discharge summary from (hospital system/practice) ___[facility]__, on (date of service) _10/22/23_. Specifically, the data/test result/record I reviewed was: ___hospital discharge summary___. *The following comorbid health conditions pertinent to this [facility] visit were discussed, diagnoses were added, and current status documented: HTN The patient needs a follow up appointment with urology within a few weeks. The patient needs a follow up appointment with PCP within 5 days, she plans to contact them tomorrow. *The following referrals were submitted today: none. SSMILE High Risk area for hospital readmission *SYMPTOMS Does the patient have ongoing or worsening symptoms? No, low risk for readmission. *SKILLED NEEDS Does the patient have unaddressed skilled needs? No, low risk for readmission. *MEDICATIONS Is the patient/caregiver able to describe current medication management strategy? No, the patient is at risk for readmission. Reconciliation and Management: Hard copy discharge medication list provided by patient was reviewed and reconciled during this encounter with patient's current medications. A face to face medication reconciliation was completed during today's visit. No changes were made to the patient's medication regimen today The patient verbalized understanding of the dosage and timing of their medications and understands the need to take their medications as prescribed. I had the opportunity to answer any questions regarding their medications. *INFORMATION Does the patient/caregiver/ MPOA have understanding of disease/discharge information/treatm ent plan/red flag symptoms? Yes, low risk for readmission. *LINKED UP Does the patient understand the appropriate providers to follow up with: Yes, low risk for readmission. Does the patient have access to healthcare, food, social support? Yes, low risk for readmission. Resources available through [facility]. *ENGAGEMENT Is the patient/caregiver/ MPOA engaged in the care plan? Yes, low risk for readmission. *After reviewing records, medications, understanding for the plan of care, physical exam, and SSMILE Risk score, and it is determined the patient is safe to remain at home and is left in stable condition. *Additional patient instructions: Continue current medications, follow up with PCP as scheduled. I gave detailed care plan instructions, submitted appropriate referrals as needed, and answered all questions. The patient verbalizes understanding and agrees with the plan. The patient is advised to seek [facility], or in the ER for new or worsening symptoms. Notes from the visit were sent to the patient's PCP. Proper Personal Protective Equipment (PPE), including gloves and surgical mask were donned and doffed appropriately and all equipment cleaned using approved technique with germicidal disposable wipes prior to and after care of this patient according to [facility]'s infection prevention protocols. Time On Scene with Patient: 01:30:38 [email or web address] Not available 10/24/2023 14:00:01 Plan of Treatment Reminders Order Date Submit Date Provider Last Modified By Organization Details Last Modified Time Details Appointments None record ed. Lab None record ed. Referral None record ed. Procedures None record ed. Surgeries None record ed. Imaging None record ed. Medication Orders None record ed. Patient TargetsNo targets recorded. Patient Instructions Encounter Date Encounter Id Patient Instructions Last Modified By Organization Details Last Modified Time 10/24/2023 [id number] When to access different levels of care: When to use Primary Care: For preventative care- care that keeps you healthy Help you understand your health conditions or illnesses When you are sick and your doctor's office is open For routine shots like those that prevent pneumonia, flu and tetanus Physical exams When to use [facility]: When you are sick or injured when your primary care provider (PCP) is closed, or unable to see you that day If you feel you need urgent care services to treat an illness or injury If you are unable to leave your house or arrange for transportation to your doctor's office [facility] is part of your healthcare team. [facility] can treat your illnesses or injuries when your doctor is unable to see you in their office, and on weekends and holidays when your doctor's office is closed. Call [facility] if your doctor can't see you or if you have questions about where to get care. When to use the emergency Department: Bleeding that will not stop Hard time breathing Seizures Chest pain Stroke symptoms Car accidents If you feel like you are having a life threatening emergency, call 911 or go directly to the Emergency department [email or web address] Not available 10/24/2023 13:38:33 Reason for Referral None Reported. Procedures Surgical History Date Name Laterality Status Provider Name and Address Organization Details Recorded Time 10/24/19 24 Medication Review completed DENITA WALDROP NP [address] [facility] [address] ,[address], [place], [address], [place] [facility] 10/24/2023 13:38:10 Imaging Results None recorded. Procedure Notes None recorded. Medical Equipment None Reported. Allergies Allergen ID Allergen Name Allergen Category Reaction Reaction Severity Criticality Documentation Date Start Date Code Code System Note Provider Name and Address Organization Details Recorded Time 187535 lisinopri l medicatio n cough Not available low 10/24/2023 70641 [facility] Melvin b[place], [place] - [facility] 4 12:54:20 Medications Name Sig Start Date Stop Date Status Note LastModified by Organization Details LastModified Time levothyroxi ne 137 mcg tablet TAKE 1 TABLET BY MOUTH EVERY DAY active Not Available Not Available No t Available atorvastati n 20 mg tablet TAKE 1 TABLET BY MOUTH EVERY DAY EVERY EVENING active Not Available Not Available No t Available trazodone 50 mg tablet TAKE 1-3 TABLETS BY MOUTH DAILY active Not Available Not Available No t Available glipizide 10 mg tablet TAKE 1 TABLET TWICE A DAY active Not Available Not Available No t Available amlodipine 5 mg tablet TAKE 1 TABLET BY MOUTH EVERY DAY AT BEDTIME active Not Available Not Available No t Available metformin 1,000 mg tablet TAKE 1 TABLET BY MOUTH TWICE A DAY active Not Available Not Available No t Available levothyroxi ne 125 mcg tablet TAKE 1 TABLET BY MOUTH ONCE DAILY active Not Available Not Available No t Available levothyroxi ne 150 mcg tablet TAKE 1 TABLET BY MOUTH EVERY OTHER DAY 10/23 completed Not Available Not Available Not Available cefdinir 300 mg capsule active Not Available Not Available Not Available irbesartan 300 mg tablet TAKE 1 TABLET BY MOUTH EVERY DAY active Not Available Not Available No t Available Contour Test Strips TEST 2 TIMES DAILY WITH MEALS DIRECTED active Not Available Not Available No t Available CoQ-10 200mg 2020 active Not Available Not Available Not Avai lable GaviLyte-G 236 gram-22.74 gram-6.74 gram-5.86 gram oral solution PLEASE SEE ATTACHED FOR DETAILED DIRECTION S 10/23 completed Not Available Not Available Not Available Ozempic 1 mg/dose (4 mg/3 mL) subcutaneou s pen injector INJECT 1MG SUBCUTANE OUSLY EVERY WEEK FOR 3 MONTHS active Not Available Not Available No t Available Ozempic 0.25 mg or 0.5 mg (2 mg/3 mL) subcutaneou s pen injector 0.5 MG (0.736 ML) SUBCUTANE OUSLY EVERY WEEK FOR 3 MONTHS 10/23 completed Not Available Not Available Not Available Vitals Date Recorded Respiratory rate Body temperature Heart rate Oxygen saturation Oxygen saturation in Arterial blood by Pulse oximetry Systolic And Diastolic Provider Name and Address Organization Details Last Updated DateTime 4 14 /min 97.6 [degF] 84 /min 98 % 98 % 134/62 mm[Hg] Not Available [facility] 4 12:45:23 Social History Question Answer Notes LastModified by Organizat ion Details LastModified Time Tobacco Smoking Status Never Smoker MOI Castañeda - [facility] 10/24/2023 13:12:21 Do You Have An Advance Directive? Yes Information not available 10/24/2023 What Is Your Advocate's Name? Vicente oh Information not available 10/24/2023 What Is Your Relation To The Advocate? Information not available 10/24/2023 What Is The Name Of Your Alternate Advocate? Homero [email or web address] Information not available 10/24/2023 Is Blood Transfusion Acceptable In An Emergency? Yes [email or web address] Information not available 10/24/2023 What Is Your Code Status? Full Code [email or web address] Information not available 10/24/2023 Do You Have A Directive To Physicians? No [email or web address] Information not available 10/24/2023 Within The Past 12 Months, Has It Happened That The Food You Bought Just Didn't Last And You Didn't Have Money To Get More. Never True Information not available 10/24/2023 Within The Past 12 Months, Have You Worried That Your Food Would Run Out Before You Got Money To Buy More. Never True [email or web address] Information not available 10/24/2023 Fall Risk: Do You Feel Unsteady When Standing Or Walking? No [email or web address] Information not available 10/24/2023 We Know That How And When People Interact With Friends And Family Can Be Very Different From Person To Person. How Often Do You Have The Opportunity To See Or Talk To People That You Care About And Feel Close To? (Ex: Talking To Friends On The Phone Or Visiting Friends Or Family Or Going To [employer] Or Club Meetings) 5 Or More Times Per Week [email or web address] Information not available 10/24/2023 Excessive Alcohol Or Drug Use No [email or web address] Information not available 10/24/2023 Does This Patient Have A PCP? Yes [email or web address] Information not available 10/24/2023 Has The Patient Seen Their PCP In The Past 6 Months? Yes [email or web address] Information not available 10/24/2023 Is This Patient In Hospice? No Information not available 10/24/2023 ADL: Do You Need Help With Daily Activities Such As Bathing, Preparing Meals, Dressing, Or Cleaning? No [email or web address] Information not available 10/24/2023 Social Support: Do You Feel Safe? Yes [email or web address] Information not available 10/24/2023 We Know From Many Of Our Patients That Covering All Of Their Costs Can Be Difficult At Times. This Can Cause Stress And Impact Health. In The Past Year, Have You Been Unable To Get Any Of The Following When It Was Really Needed? No [email or web address] Information not available 10/24/2023 What Is Your Housing Situation Today? I Have Housing [email or web address] Information not available 10/24/2023 Would You Like Help Connecting To Resources? None [email or web address] Information not available 10/24/2023 Do You Have A Medical Power Of Keycase Assembler? Yes Information not available 10/24/2023 Do You Have An Out Of Hospital DNR? No [email or web address] Information not available 10/24/2023 Do You Have A Patient Advocate? Yes Information not available 10/24/2023 Sex: Unknown Functional Status Question Answer Note LastModified by Organizat ion Details LastModified Time Do you use any illicit or recreational drugs? No [email or web address] Information not available 10/24/2023 Do you or have you ever used any other forms of tobacco or nicotine? No [email or web address] Information not available 10/24/2023 What is your level of alcohol consumption? Occasional [email or web address] Information not available 10/24/2023 Mental Status None recorded. Family History Relationship Description Onset Age of this Age Resolved Age Notes LastModified by Organization Details LastModified Time Father Hypertensive disorder [email or web address] Not available 2023 13:10:44 Father Diabetes mellitus [email or web address] Not available 2023 13:10:58 Mother Hypertensive disorder [email or web address] Not available 2023 13:11:10 Medical History Condition Response Diabetes Y Coronary Artery Disease N CHF N Parkinson's Disease N Cancer N Stroke N Dementia N Hypothyroidism Y COPD N Asthma N Depression N High Cholesterol Y Rheumatoid Arthritis N Pulmonary Embolism N Hypertension Y A-fib N Osteoporosis N Kidney Disease N Gynecological HistoryNo gynecological history recorded. Obstetrics History GPAL:G 0 P 0 0 0 0 Past Encounters Encounter ID Performer Location Encounter Start Date Encounter Closed Date Diagnosis/Indication Diagnosis SNOMED-CT Code Diagnosis ICD10 Code Diagnosis IMO Codes Diagnosis Note [id number] DENITA CHAPO WALDROP [facility] - HYBRID [address] [place], [place] [id number] 10/24/2023 12:39:01 10/25/2023 13:29:55 Essential hypertension 54446488 I10 Status of condition: Chronic. Testing/Re sults: none Discussion , Plan & Management : Continue current medication s as prescribed , follow up with PCP as scheduled. Health Concerns Section Related Observation LastModified by Organization Detai ls LastModified Time None Recorded Concern Status LastModified by Organization Details LastModified Time None Recorded Advance Directives Directive Y: Payers Insurance Date Sequence Insurance Name Policy Number Policy Wisdom Covered Member ID Wisdom Member ID Guarantor Name 10/25/2023 1 [place] BL[place] (MEDICARE REPLACEMENT HMO) Denia Sanchez [id number] Denia Sanchez Notes Date Note Type Note Provider Name and Address Organization Details Recorded Time 4 text/html This patient being seen for a [facility] appointment following hospitalization at:[facility]. Date of initial contact by Dispatcher Scheduling Team (see Dashboard): 4 Reason for admission:UTI, nephrolithiasis Date admitted:10/18/2023. Date discharged: 4. Testing:blood culture, lab workSurgeries/Proced ures:Urethral stentNew medications:Cefdinir Since discharge, the patient has been resting at home, she is taking her prescribed antibiotic without difficulty. DENITA WALDROP NP [address] [facility] [address] ,[address], [place], [address], [place] - [facility] 10/24/2023 14:01:08 OBGyn Episode No OBEpisode recorded.
--- OUTSIDE RECORDS SUMMARY | 2025-04-22 17:10 | XMS_ITS | Data Portability ---
Author Organization [place] [facility], [facility] Address [address] [place] [address] Care Team Providers Care Phlebotomist Name Role Phone MERI CULP Primary Care Provider Assessment No assessment recorded. Plan of Treatment Reminders Order Date Submit Date Provider Last Modified By Organization Details Last Modified Time Details Appointments None recorded. Lab urinalysis, dipstick 2023 024 [email or web address] [facility], [address], [place], [address], 4 15:40:17 culture, urine 2023 024 [facility], [address], [place], [address], 4 11:59:50 urinalysis, dipstick 2023 024 [email or web address] [facility], [address], [place], [address], 4 12:50:03 Referral None recorded. Procedures None recorded. Surgeries None recorded. Imaging CT, abdomen + pelvis, w/o contrast - PLEASE CALL PT TO SCHEDULE 2023 024 [facility] Radiology Department, [address] [place], [address], 4 16:56:34 CT, abdomen + pelvis, w/o contrast 2023 025 [email or web address] Not available 5 09:59:58 Medication Orders cephalexin 250 mg capsule 2023 024 [id number], [address], [place], [address], 4 15:40:20 cephalexin 250 mg capsule 2023 024 [facility], [address], [place], [address], 4 12:50:12 Estrace 0.01% (0.1 mg/gram) vaginal cream 2023 024 [facility], [address], [place], [address], 4 12:50:11 ondansetron 4 mg disintegrat ing tablet 2023 024 [facility], [address], [place], [address], 4 14:35:34 Patient TargetsNo targets recorded. Patient InstructionsNo instructions recorded. Reason for Referral None Reported. Results Created Date Observation Date Name Description Value Unit Range Abnormal Flag Note LastModifiedBy Organization Detail LastModifiedTime 02/03/2002/03/2024 urina lysis , dipst ick BLOOD Negati ve Not Available [facility] [address], [place], [address], 02/03/2024 12:11:04 02/03/20 24 02/03/2024 urina lysis , dipst ick BILIRUBIN Negati ve Not Available [facility] [address], [place], [address], 02/03/2024 12:11:04 02/03/20 24 02/03/2024 urina lysis , dipst ick UROBILINOGEN 0.2 mg/dL (Norm) Not Available [facility] [address], [place], [address], 02/03/2024 12:11:04 02/03/20 24 02/03/2024 urina lysis , dipst ick KETONES Negati ve Not Available [facility] [address], [place], [address], 02/03/2024 12:11:04 02/03/20 24 02/03/2024 urina lysis , dipst ick PROTEIN Negati ve Not Available [facility] [address], [place], [address], 02/03/2024 12:11:04 02/03/20 24 02/03/2024 urina lysis , dipst ick NITRITES Negati ve Not Available [facility] [address], [place], [address], 02/03/2024 12:11:04 02/03/20 24 02/03/2024 urina lysis , dipst ick GLUCOSE Negati ve Not Available [facility] [address], [place], [address], 02/03/2024 12:11:04 02/03/20 24 02/03/2024 urina lysis , dipst ick p.H. 6.0 Not Available [facility] [address], [place], [address], 02/03/2024 12:11:04 02/03/20 24 02/03/2024 urina lysis , dipst ick S.G. (Specific [place]) 1.020 Not Available [facility] [address], [place], [address], 02/03/2024 12:11:04 02/03/20 24 02/03/2024 urina lysis , dipst ick LEUKOCYTES Small (25 WBC/uL ) Not Available [facility] [address], [place], [address], 02/03/2024 12:11:04 03/29/20 24 03/29/2024 URINE CULTU RE final report MICROB IOLOGY RESULT S abnormal SOURC E Midst ream- Clean Catch KNOWN ALLER GIES lisin opril TREAT MENT na MEDIA PLATE D AT: Media plate d on 03/29 @ 4:19 PM COLON Y COUNT >100, 000 cfu/m l RESUL T Pseud omona s aerug inosa (Isol ate 1) RESUL T Kluyv era ascor bata (Isol ate 2) Sensi tivit y Angelic sis [place] te 1 [place] te 2 ----- ----- ----- ----- ----- ----- ----- - ----- ----- ----- - AMOX/ K CLAV <=8/4 *S AMP/S ULBAC DAI <=4/2 *S AMPIC ILLIN >16 R AZTRE ONAM <=4*S <=4*S CEFAZ LUIS MIGUEL >16 R CEFOX ITIN <=8*S CEFTA ZIDIM E 4*S <=1*S CEFTR IAXON E >2 R CIPRO FLOXA CAROL 0.5*S <=0.2 5*S GENTA MICIN 4*S IMIPE NEM 2*S MEROP ENEM <=1*S NITRO FURAN TOIN 64 I PIP/T AZO <=8*S <=8*S TETRA CYCLI NE <=4*S TOBRA MYCIN <=2*S TRIME TH/PAVON LFA <=2/3 8*S Orga nisms that are susce ptibl e to tetra cycli ne are gener ally also susce ptibl e to doxyc yclin e and minoc yclin e. Any subst ituti on of drugs which have not been teste d for sensi tivit y shoul d be consi dered based on appro brian usage of the drugs . Infor ashley n on doxyc yclin e and minoc yclin e can be found in the Physi osmar' s Desk Refer ence or from the [facility] actur er. S= Susce ptibl e;I= Inter media te;R= Resis tant; ESBL= Resis tance due to confi rmed ESBL; Suspe cted ESBL= Posit fernando ronna gonzalez only This lab resul t is being provi ded to you and your provi francisco at the same time in compl iance with the Centu ry Cures Act. Your provi francisco may not have had time to revie w and make recom menda tions based on the resul t. Pleas e allow up to one week for provi francisco revie w. Not Available [facility] [address], [place], [address], 03/31/2024 11:59:49 03/29/2003/29/2024 urina lysis , dipst ick BLOOD Negati ve Not Available [facility] [address], [place], [address], 03/28/2024 09:16:14 03/29/2003/29/2024 urina lysis , dipst ick BILIRUBIN Negati ve Not Available [facility] [address], [place], [address], 03/28/2024 09:16:14 03/29/2003/29/2024 urina lysis , dipst ick UROBILINOGEN 0.2 mg/dL (Norm) Not Available [facility] [address], [place], [address], 03/28/2024 09:16:14 03/29/2003/29/2024 urina lysis , dipst ick KETONES Negati ve Not Available [facility] [address], [place], [address], 03/28/2024 09:16:14 03/29/2003/29/2024 urina lysis , dipst ick PROTEIN Negati ve Not Available [facility] [address], [place], [address], 03/28/2024 09:16:14 03/29/20 24 03/29/2024 urina lysis , dipst ick NITRITES Negati ve Not Available [facility] [address], [place], [address], 03/28/2024 09:16:14 03/29/20 24 03/29/2024 urina lysis , dipst ick GLUCOSE 100 mg/dL Not Available [facility] [address], [place], [address], 03/28/2024 09:16:14 03/29/20 24 03/29/2024 urina lysis , dipst ick p.H. 5.5 Not Available [facility] [address], [place], [address], 03/28/2024 09:16:14 03/29/20 24 03/29/2024 urina lysis , dipst ick S.G. (Specific [place]) 1.025 Not Available [facility] [address], [place], [address], 03/28/2024 09:16:14 03/29/2003/29/2024 urina lysis , dipst ick LEUKOCYTES Trace (10 WBC/uL ) Not Available [facility] [address], [place], [address], 03/28/2024 09:16:14 12/07/19 24 12/07/2023 XR, urogr am, retro grade No observ ation record ed. [email or web address] [facility] [address], [place], [address], 12/14/2023 15:50:07 02/15/20 24 02/15/2024 CT, abdom en + pelvi s, w/o contr ast No observ ation record ed. [facility] [address], [place], [address], 02/15/2024 18:30:37 02/17/20 24 02/16/2024 imagi ng/di agnos tic resul t No observ ation [facility] ed. [facility] [address], [place], [address], 02/21/2024 10:04:07 Result Notes None recorded. Procedures Surgical History Date Name Laterality Status Provider Name and Address Organization Details Recorded Time 4 Bladder Scan completed Charlotte Bell [facility] 03/29/2024 15:24:42 4 Cystoscopy with foreign body/stent removal completed Jatinder Cali MD [address] [place] [address],[facility] [address], [place], [address], [facility] 03/14/2024 13:54:45 4 Urinalysis completed Varghese Langford [facility] 02/03/2024 12:11:25 4 Bladder Scan completed Varghese Langford [facility] 02/03/2024 12:29:01 4 Cystoscopy with foreign body/stent removal completed Jatinder Cali MD [address] [place] [address],[address], [place], [address], [facility] 12/28/2023 14:34:20 Imaging Results None recorded. Procedure Notes None recorded. Medical Equipment None Reported. Allergies Allergen ID Allergen Name Allergen Category Reaction Reaction Severity Criticality Documentation Date Start Date Code Code System Note Provider Name and Address Organization Details Recorded Time 988841 lisinopri l medicatio n cough Not available Not available 12/28/2023 24089 RxNorm Carmella buchanan [facility] 4 14:02:23 Medications Name Sig Start Date Stop Date Status Note LastModified by Organization Details LastModified Time levothyroxi ne 137 mcg tablet TAKE 1 TABLET BY MOUTH EVERY OTHER DAY (ALTERNAT E WITH 125 MG DOSE) 12/27 completed Not Available Not Available Not Available oxybutynin chloride ER 15 mg tablet,exte nded release 24 hr active Not Available Not Available Not Available cefuroxime axetil 250 mg tablet 03/29 completed Not Available Not Available Not Available atorvastati n 20 mg tablet TAKE 1 TABLET BY MOUTH EVERY DAY EVERY EVENING active Not Available Not Available No t Available trazodone 50 mg tablet TAKE 2 TABLETS BY MOUTH DAILY AT BEDTIME NEEDED FOR INSOMNIA active Not Available Not Available No t Available oxybutynin chloride ER 10 mg tablet,exte nded release 24 hr active Not Available Not Available Not Available benzonatate 200 mg capsule TAKE 1 CAPSULE BY MOUTH 3 TIMES A DAY active Not Available Not Available No t Available cephalexin 250 mg capsule TAKE 1 CAPSULE EVERY OTHER DAY BY ORAL ROUTE FOR 60 DAYS. active Not Available Not Available No t Available hydrocodone 5 mg-acetamin ophen 325 mg tablet 12/27 completed Not Available Not Available Not Available glipizide 10 mg tablet TAKE 1 TABLET BY MOUTH DAILY active Not Available Not Available No t Available amlodipine 5 mg tablet TAKE 1 TABLET BY MOUTH EVERY DAY AT BEDTIME active Not Available Not Available No t Available ciprofloxac in 500 mg tablet TAKE 1 TABLET BY MOUTH EVERY 12 HOURS FOR 7 DAYS active Not Available Not Available No t Available ondansetron 8 mg disintegrat ing tablet 8 MG ORALLY EVERY 8 HOURS NEEDED FOR NAUSEA AND VOMITING active Not Available Not Available No t Available cephalexin 500 mg capsule TAKE 1 CAP ORALLY THREE TIMES A DAY FOR 7 DAYS 02/02 completed Not Available Not Available Not Available metformin 1,000 mg tablet 1000 MG ORALLY 2 TIMES PER DAY WITH MEALS active Not Available Not Available No t Available levothyroxi ne 125 mcg tablet TAKE 1 TABLET BY MOUTH EVERY OTHER DAY - ALTERNATE WITH 137 MCG DOSE active Not Available Not Available No t Available levothyroxi ne 150 mcg tablet TAKE 1 TABLET BY MOUTH EVERY OTHER DAY 12/27 completed Not Available Not Available Not Available estradiol 0.01% (0.1 mg/gram) vaginal cream INSERT A PEA SIZED AMOUNT OF CREAM INTO THE VAGINA THREE TIMES A WEEK AT NIGHT active Not Available Not Available No t Available oxybutynin chloride 5 mg tablet active Not Available Not Available No t Available ondansetron 4 mg disintegrat ing tablet PLACE 1 TABLET 4 TIMES A DAY BY TRANSLING UAL ROUTE. active Not Available Not Available No t Available cefdinir 300 mg capsule 12/27 completed Not Available Not Available Not Available doxycycline hyclate 100 mg tablet TAKE 1 TABLET BY MOUTH TWICE A DAY 12/27 completed Not Available Not Available Not Available irbesartan 300 mg tablet TAKE 1 TABLET BY MOUTH EVERY DAY active Not Available Not Available No t Available nitrofurant oin monohydrate /macrocryst als 100 mg capsule 100 MG ORALLY EVERY 12 HOURS FOR 7 DAYS MUST ADMINISTE R WITH A MEAL/FOOD 03/29 completed Not Available Not Available Not Available GaviLyte-G 236 gram-22.74 gram-6.74 gram-5.86 gram oral solution PLEASE SEE ATTACHED FOR DETAILED DIRECTION S 12/27 completed Not Available Not Available Not Available Contour Next Test Strips FOR TEST TWICE DAILY W/MEALS DIRECTED 03/29 completed Not Available Not Available Not Available Ozempic 1 mg/dose (4 mg/3 mL) subcutaneou s pen injector INJECT 1MG SUBCUTANE OUSLY EVERY WEEK FOR 3 MONTHS active Not Available Not Available No t Available Ozempic 0.25 mg or 0.5 mg (2 mg/3 mL) subcutaneou s pen injector 0.5 MG (0.736 ML) SUBCUTANE OUSLY EVERY WEEK FOR 3 MONTHS 12/27 completed Not Available Not Available Not Available Vitals Date Recorded Body height Body mass index (BMI) Body weight Provider Name and Address Organization Details Last Updated DateTime 12/28/2023 157.48 cm 27.1 kg/m2 79181.67 g Carmella bar [facility] 12/28/2023 14:01:54 Date Recorded Body height Body mass index (BMI) Body weight Provider Name and Address Organization Details Last Updated DateTime 02/03/2024 157.48 cm 25.2 kg/m2 83671.75 g Varghese Langford [facility] 02/03/2024 12:25:23 Date Recorded Body height Body mass index (BMI) Body weight Provider Name and Address Organization Details Last Updated DateTime 03/14/2024 157.48 cm 25.6 kg/m2 21908.93 g Janel Batista [facility] 03/14/2024 09:52:21 Date Recorded Body height Body mass index (BMI) Body weight Provider Name and Address Organization Details Last Updated DateTime 03/29/2024 157.48 cm 25.2 kg/m2 34311.75 g Charlotte Bell [facility] 03/29/2024 15:23:11 Social History Question Answer Notes LastModified by [employer] Details LastModified Time Tobacco Smoking Status Never Smoker Carmella Sanchez-Lakhwinder null, [facility] 12/28/2023 14:04:02 What Is Your Level Of Caffeine Consumption? Occasional Information not available 12/28/2023 What Was The Date Of Your Most Recent Tobacco Screening? 03/29/2024 [email or web address] Information not available 03/29/2024 Have You Ever Been Counseled For Unhealthy Alcohol Use? No [email or web address] Information not available 02/03/2024 How Many Days In The Past Year Have You Consumed 4 Or More Drinks? 0 [email or web address] Information not available 02/03/2024 Sex: Unknown Functional Status Question Answer Note LastModified by [employer] Details LastModified Time Do you use any illicit or recreational drugs? No Information not available 12/28/2023 What is your level of alcohol consumption? Occasional Information not available 12/28/2023 Mental Status None recorded. Family History Nothing Reported. Medical History Condition Response Kidney Stones Y GERD/Acid Reflux Y High Cholesterol Y Diabetes Y Gynecological HistoryNo gynecological history recorded. Obstetrics History GPAL:G 0 P 0 0 0 0 Immunizations Vaccine Type Date Status Note Provider Nam e and Address Organization Details Recorded Time Influenza, adjuvanted, trivalent, PF 7 completed Carmella Syedal-Amo ro null, [facility] 12/28/2023 14:02:01 zoster recombinant 9 completed Carmella Beyrigal-Laura ro null, [facility] 12/28/2023 14:02:01 zoster recombinant 9 completed Carmella Beyrigal-Amo ro null, [facility] 12/28/2023 14:02:01 Influenza, high-dose, quadrivalent, PF 2 completed Carmella Syedal-Amo ro null, [facility] 12/28/2023 14:02:01 Influenza, high-dose, quadrivalent, PF 0 completed Miletzi Sanchez-Laura ro null, [facility] 12/28/2023 14:02:01 Influenza, adjuvanted, quadrivalent, PF 3 completed Miletzi Sanchez-Laura ro null, [facility] 12/28/2023 14:02:01 Influenza, adjuvanted, quadrivalent, PF 1 completed Miletzi Sanchez-Amo ro null, [facility] 12/28/2023 14:02:01 COVID-19, mRNA, LNP-S, PF, 30 mcg/0.3 mL dose 2 completed Miletzi Sanchez-Amo ro null, [facility] 12/28/2023 14:02:01 COVID-19, mRNA, LNP-S, PF, 30 mcg/0.3 mL dose 1 completed Miletzi Sanchez-Amo ro null, [facility] 12/28/2023 14:02:01 COVID-19, mRNA, LNP-S, PF, 30 mcg/0.3 mL dose 1 completed Miletzi Sanchez-Laura ro null, [facility] 12/28/2023 14:02:01 pneumococcal polysaccharide PPV23 3 completed Miletzi Sanchez-Laura ro null, [facility] 12/28/2023 14:02:01 pneumococcal polysaccharide PPV23 8 completed Ana [place] null, [facility] 02/28/2024 10:22:00 influenza, unspecified formulation 2 completed Ana Bobby null, [facility] 02/28/2024 10:22:00 influenza, unspecified formulation 4 completed Miletzi Sanchez-Amo ro null, [facility] 12/28/2023 14:02:01 influenza, unspecified formulation 5 completed Ana [place] null, [facility] 02/28/2024 10:22:00 influenza, unspecified formulation 3 completed Miletzi Sanchez-Laura ro null, [facility] 12/28/2023 14:02:01 Tdap 0 completed Miletzi Sanchez-Amo ro null, [facility] 12/28/2023 14:02:01 Pneumococcal conjugate PCV 13 7 completed Ana [place] null, [facility] 02/28/2024 10:22:01 zoster live 2 completed Miletzi Sanchez-Amo ro null, [facility] 12/28/2023 14:02:01 Influenza, high-dose, trivalent, PF 7 completed Ana [place] null, [facility] 02/28/2024 10:22:01 Influenza, high-dose, trivalent, PF 8 completed Miletzi Sanchez-Amo ro null, [facility] 12/28/2023 14:02:01 Influenza, high-dose, trivalent, PF 9 completed Miletzi Sanchez-Amo ro null, [facility] 12/28/2023 14:02:01 Influenza, split virus, trivalent, PF 0 completed Miletzi Sanchez-Amo ro null, [facility] 12/28/2023 14:02:01 Novel [id number] 9 completed Miletzi Sanchez-Laura ro null, [facility] 12/28/2023 14:02:01 Td (adult), 2 Lf tetanus toxoid, preservative free, adsorbed 0 completed Miletzi Sanchez-Amo ro null, [facility] 12/28/2023 14:02:01 Influenza, split virus, quadrivalent, PF 4 completed Miletzi Sanchez-Amo ro null, [facility] 12/28/2023 14:02:01 Influenza, split virus, quadrivalent, PF 6 completed Miletzi Sanchez-Laura ro null, [facility] 12/28/2023 14:02:01 influenza, unspecified formulation 1 completed Ana [place] null, [facility] 02/28/2024 10:22:00 influenza, unspecified formulation 2 completed Ana buchanan, [facility] 02/28/2024 10:22:00 Influenza, split virus, quadrivalent, PF 5 completed Ana buchanan, [facility] 02/28/2024 10:22:01 Past Encounters Encounter ID Performer Location Encounter Start Date Encounter Closed Date Diagnosis/Indication Diagnosis SNOMED-CT Code Diagnosis ICD10 Code Diagnosis IMO Codes Diagnosis Note [id number] Jatinder Cali MD [facility] [address] [place] [address] 12/28/2023 13:15:04 01/04/2024 16:58:33 Kidney stone 37442318 N20.0 Follow-up CT scan 6 months Recurrent urinary tract infection N39.0 Patient with history of recurrent UTIs and prior stones. I will give her some ciprofloxa carol tablets 500 mg p.o. twice daily for the next 5 days. Nausea and vomiting 1693 1999 R11.2 I am going to give her some Zofran ODT to help her with her nausea but if it continues she is to go to the emergency room to be further evaluated [id number] Jose Wing PA-C [facility] [address] [place] [address] 02/03/2024 11:19:54 02/04/2024 10:10:41 Recurrent urinary tract infection N39.0 -With recent history of septic right UPJ stone/ s/p URS/HLL and subsequent stent removal with Dr. Cali. Has continued to have rUTIs since. Just finished a course of keflex today and asymptomat ic today per report. She improves with abx and symptoms return soon after stopping, with + cultures (E.Coli per notes). -UCx requested from [place] -UTI treatments and management s were discussed. I went over the role of preventive UTI therapies such and adding cranberry tablets, D-mannose Q day, probiotics and local vaginal estrogenat ion, timed and double voiding. -Vaginal estrogen applicatio n discussed today-I stressed importance of obtaining UC at the time of UTI symptoms only to guide the correct Abx choice.-We will obtain upper tract images to r/o upper tract pathology, in setting of recent interventi on-She will start preventive Abx for 6 weeks (Keflex 250 gm QDAY), then stop after and observe for the return of her UTI symptoms.- Reasons to be seen more urgently by local PCP/ED discussed today-Foll ow up in 8 weeks [id number] Jatinder Cali MD [facility] [address] [place] [address] 03/14/2024 09:37:14 03/15/2024 11:30:47 Ureteric stone [id number] N20.1 Patient is status post ureterosco py laser Donald stone removal. The stent was successful ly removed today. She did have a previous urinary tract infection she will complete all antibiotic s. She is scheduled to see MANI Rose on 29 March. Urinalysis and culture at that time. [id number] [facility]I KAUFF[facility] [address] [place] [address] 03/29/2024 15:10:20 03/30/2024 13:59:43 Recurrent urinary tract infection [id number] N39.0 UTI treatments and management s were discussed. Most of the time there is a predisposi tion for re-coloniz ation and invasion of the urothelium by pathogens and no other pathology identified . I stressed the importance of obtaining urine culture at the time of UTI symptoms to guide the correct antibiotic choice and prevent antibiotic resistance . Treated for a kidney stone in the last few months Cont preventati ve UTI therapies such as: Timed and double voiding, D-mannose, Probiotics , Cranberry Pills, vaginal estrogen. Send urine for culture todayWill change keflex 250mg prophylaxi s to e/o day for 2mo f/u in 4-6mo for recheck History of calculus of kidney [id number] Z87.442 Urge incon tinence of urine 08665001 N39.41 May consider trial of OAB meds/pathw ay in future once infections better controlled Nocturia 039552484 R35.1 Health Concerns Section Related Observation LastModified by Organization Detai ls LastModified Time None Recorded Concern Status LastModified by Organization Details LastModified Time None Recorded Advance Directives Directive None Recorded Payers Insurance Date Sequence Insurance Name Policy Number Policy Wisdom Covered Member ID Wisdom Member ID Guarantor Name 04/05/2024 1 [facility]: ANIAK BLUE - MEDICARE COST [id number] Denia Sanchez [id number] Denia Swanson Daniel Notes Date Note Type Note Provider Name and Address Organization Details Recorded Time 12/28/2023 text/html ROS as noted in the HPI 73-year-old woman with history of multiple medical problems including but not limited to hypertension diabetes type 2, hyperlipidemia, hypothyroidism and recurrent stone disease with obstruction. Has had E. coli sepsis. Last treated by [facility] December 06 with cystoscopy right ureteral stent exchange right ureteroscopy pyeloscopy laser Donald and stone removal with irrigation right renal pelvis. Subsequently developed sepsis and managed in the hospital. Dismissed on ciprofloxacin which she completed approximately 1 week ago. Is overall done well with no fever chills or flank pain. Recently has experienced some nausea and has even has vomited. Here for stent removal Jatinder Cali MD [address] [place] [address],[address], [place], [address], [facility] 12/28/2023 14:37:09 02/03/2024 text/html 73 yo female who presents for evaluation of UTIs. 1. UTI/Recent ureterolithiasis-10/19-: Admitted for [facility] for sepsis due to E. coli UTI and was ultimately found to have a right proximal ureter/UPJ obstructing stone measuring 6 x 6 x 8 mm. Underwent R ureteral stent placement on 10/[address] Cali. UCx with E. Coli, R to FQ, ampicillin and bactrim. Put on cefdinir to complete a 14d.-12/06-12/10/23: Admitted to [facility] after cystoscopy, right ureteral stent exchange, right ureteroscopy, pyeloscopy, laser lithotripsy and stone removal with irrigation of the right renal pelvis with Dr. Cali. Intraprocedrually noted to have purulent material in renal pelvis/proximal ureter, stone was fragmented and removed. She required admission to ICU with pressor support. BCx with E.Coli, R to FQs and Bactrim.-12/28/23: Stent removed in office with Dr. Cali. Noting that she was vomiting. Sent home with Zofran and Cipro 500 mg BID-12/28/23: Went to ED for x3 vomiting episodes. Switched from Cipro to Keflex 500 mg TID for 7 days given FQ resistance on recent blood culture.-12/30/23: Seen for follow up in office. Notes report urine culture collected on 12/28/23 with E.Coli that was sensitive to keflex. Patient reports feeling better.-01/11/24: Seen in urgent care for vomiting, confusion. Tx Keflex 500 mg TID for 7 days.-01/27/24: Seen in office. Reports does well while on abx then has vomiting that returns after stopping. She was placed on another 7 day course of Keflex 500 gm TID for 7 days. -She notes that today she took her last tablet of keflex. [place] improved on course of abx. Denies symptoms today of UTI, no vomiting, fevers, chills, flank pain, abdominal pain, gross hematuria, dysuria, urinary urgency and frequency beyond her baseline. -She notes that with UTI she can have some confusion, sometimes vomiting (which per her report has not happened in a long time but cannot tell me when her last episode was), and worse urinary urgency and frequency. She does not believe that she typically has dysuria with UTIs.-She wants to try to prevent UTIs, she notes more UTIs in the past couple of months than her entire life per report. 2. Urinary incontinenceShe notes that she has a longstanding history of urge urinary incontinence. She believes that she may have been evaluated for this in the past. Unsure if she has taken medication for this before. She wears a couple of pads a day. She notes that urinary urgency and frequency are worse when she has a UTI. UA:-01/27/24 :Nitrite positive. 50-100 WBCs, many bacteria-01/11/24: Nitrite positive. > 100 WBCs, many bacteria-12/28/23: Nitrite positive. > 100 WBCs, many bacteriaUCX:-Requested but not viewable today MedHx:-DM2 (HA1C 6.6)-HTN-Hypothyroidis m UA: Small leukocytes, otherwise negativePVR: 0 ccPelvic: Vaginal dryness and atrophy, cystocele grade 1/hypermobile bladder neck MANI Tejada-C [address], [place], [address], [facility] 02/03/2024 14:17:51 03/14/2024 text/html ROS as noted in the HPI 73-year-old woman status post cystoscopy with left ureteroscopy stone extraction and stent exchange. Currently on antibiotics. Here for stent removal. Jatinder Cali MD [address], [place], [address], [facility] 03/14/2024 13:56:01 03/29/2024 text/html 73F previously seen by Jose and Dr. Cali. Hx of recurrent UTIs and nephrolithiasis. Also with urge urinary incontinence, using 2-3 pads per day. Complex urologic hx over the last 6mo:R stent placement 10/[address] Cali; Ecoli UTIR URS with Dr. Cali 12/06, Ecoli UTI- admitted with pressor supportStent removal with Dr. Cali 12/27, treated for another UTI with cipro then switched to keflexCT from 02/14 showed a 4mm right UPJ calculusL URS with Dr. Cali 03/07Stent removal with Dr. Cali 03/14 Today reports she is feeling well. No infection sx and UA appears neg- will culture to be sure. Also notes her OAB sx (urge leakage and nocturia) seem to be improving. Has about 9 days left on daily keflex. MHx: T2DM, HTN, Hypothyroid Prior exam: Vaginal dryness and atrophy, cystocele grade 1/hypermobile bladder neck UA trace leuks- will culturePVR 0cc MANI KAUFFMAN [address], [place], [address], [facility] 03/29/2024 15:57:36 OBGyn Episode No OBEpisode recorded.
--- OUTSIDE RECORDS SUMMARY | 2025-04-22 17:11 | XMS_ITS | Clinical Summary ---
Author Organization [facility] Address [address] [place] [address] Care Team Providers Care Molder Trimmer Name Role Phone Jocelin Oswald STONECUTTER Primary Care Provider [phone] Allergies Active Allergy Reactions Criticality Noted Date Comments Lisinopril Cough 12/11/2013 Medications * This document contains information received from the source organization and may not represent a complete record from that organization. CoQ10, Ubiquinol, (ACTIVE Q) 200 mg cap Take 1 capsule by mouth once daily. Active aspirin 81 mg tablet Take 81 mg by mouth once daily with a meal. Active calcium carbonate-vitamin D3, 600 mg-400 unit, (CALCIUM 600 + D) tablet Take 1 tablet by mouth once daily. Active multivitamin (MVI) tablet Take 1 tablet by mouth once daily. Active RESVERATROL ORAL Take 1 capsule by mouth once daily. Active atorvastatin (LIPITOR) 20 mg tabletIndications: Dyslipidemia TAKE 1 TABLET BY MOUTH AT BEDTIME. 90 tablet 3 12/28/19 18 Active amLODIPine (NORVASC) 5 mg tablet Take 5 mg by mouth at bedtime. 09/10/19 24 Active fish oil-omega-3 fatty acids (Fish OiL) 1,200-360 mg cap Take 1 Capsule by mouth once daily. One capsule is 1200 mg-360 mg Active levothyroxine (SYNTHROID) 125 mcg tabletIndications: Hypothyroidism due to acquired atrophy of thyroid Take 1 Tablet (125 mcg) by mouth once daily. 30 Tablet 4 1:54 PM CDT 12/10/19 24 Active irbesartan (AVAPRO) 300 mg tablet Take 300 mg by mouth once daily. Active metFORMIN (GLUCOPHAGE) 1,000 mg tablet Take 1,000 mg by mouth two times daily with meals. Active calcium carbonate (Tums) 200 mg calcium (500 mg) chewable tablet Chew 500-1,000 mg by mouth 4 times daily if needed for Heartburn or GI Upset. Active cephalexin (KEFLEX) 250 mg capsule Take 250 mg by mouth once daily. Active estradioL (ESTRACE) 0.01% (0.1 mg/g) vaginal cream Insert 1 g into the vagina. Three times per week (Wed,Wed,Wed) Active CRANBERRY ORAL Take by mouth once daily. Active Lactobacillus acidophilus (PROBIOTIC ORAL) Take by mouth once daily. Active D-MANNOSE ORAL Take by mouth once daily. Active ondansetron (ZOFRAN ODT) [address] 8 mg on the tongue every 8 hours if needed for Nausea/Vomiting. Active traZODone (DESYREL) 50 mg tablet Take 50-100 mg by mouth at bedtime. Active glipiZIDE (GLUCOTROL) 10 mg tablet Take 10 mg by mouth once daily before a meal. Active semaglutide (Ozempic) 1 mg/dose (4 mg/3 mL) subcutaneous pen Inject 1 mg subcutaneous once weekly. Tuesdays Active oxybutynin (DITROPAN) 5 mg tabletIndications: Left ureteral stone Take 1 Tablet (5 mg) by mouth 2 times daily if needed (Urinary urgency, stent discomfort). 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 Obesity, diabetes, and hypertension syndrome 03/2017 History of colon polyps 08/08/2015 Overview (08/08/2015): 07/2011 - 1 sessile cecal polyp, Hyperplastic Polyp. Diabetic eye exam 10/11/2014 Overview (12/11/2016): PRIMARY EYE CARE, 12/11/16 - No diabetic Retinopathy HCD at home, family has copy 07/11/2013 Type 2 diabetes mellitus wit hout complication, without long-term current use of insulin HTN (hypertension) Dyslipidemia Hypothyroidism Connective tissue disease Overview (03/08/2013): NOS, positive MAGALY Resolved Problems Problem Noted Date Diagnosed Date Resolved Date Sepsis with acute organ dysfunction 12/08/2023 02/15/2024 Sepsis due to gram-negative UTI 10/20/2023 02/15/2024 E. coli UTI (urinary tract infection) 10/20/2023 02/15/2024 Routine general medical exam ination at a health care facility 03/10/2010 12/11/2014 Overview (10/20/2013): Normal Routine History And Physical Adult Metabolic syndrome 8 Immunizations Immunization Administration Dates Next Due Influenza Virus, Unspecified 02/13/2012,02/13/20 11 Influenza, High-dose Inactivated 03/18/2017 Influenza, IIV4 03/11/2016,03/14/2015,02/12/2014 Influenza, Inactivated IIV3 (Age 65+ Years) Preserv Free 03/29/2017 Pneumococcal Poly,23-Valent (Pneumovax) 10/30/19 18,07/12/2012 Pneumococcal conj 13-Valent (Prevnar 13) 017 Tdap 04/23/2010 Zoster (Zostavax-ZVL, live) 03/24/2012 Family History Medical History Relation Name Comments Hypertension Brother [place] Diabetes Father Hypertension Father Other Father Glaucoma Other Maternal Grandfather kidney cancer Other Maternal Grandmother bladder cancer Cancer Maternal Uncle 1 Cancer-prostate Maternal Uncle 2 Heart failure Mother Hypertension Mother Osteoporosis Mother Cancer-breast Other Cousin x 3, mo m's side Cancer Paternal Uncle Good Health Son 1 Homero Good Health Son 2 Shaw Good Health Son 3 Rush Relation Name Status Comments Brother [place] Alive Father Maternal Grandfather Maternal Grandmother (Age 95) tu mor on esophagus Maternal Uncle 1 Maternal Uncle 2 Mother 06/2016 Other Paternal Grandfather threshi ng accident Paternal Grandmother MVA Paternal Uncle Son 1 Homero Alive Son 2 Shaw Alive Son 3 Rush Alive Social History Tobacco Use Types Packs/Day Years Used Date Smoking Tobacco: Never Smokeless Tobacco: Never Alcohol Use Standard Drinks/Week Comments Yes 2 (1 standard drink = 0.6 oz pur e alcohol) occasional PHQ-2 Answer Date Recorded PHQ-2 Score 0 08/16/2018 Social Connections Answer Date Recorded Do you often feel lonely or isolated from those around you? 0 02/16/2024 Financial Resource Strain Answer Date R ecorded Difficulty of Paying Living Expenses 3 02/16/2024 Difficulty of Paying Living Expenses Not on file 02/16/2024 Food Insecurity Answer Date Recorded Do you worry your food will run out before you are able to buy more? 1 02/16/2024 Transportation Needs Answer Date Record ed Does lack of transportation keep you from medica l appointments? 1 02/16/2024 Does lack of transportation keep you from work, meetings or getting things that you need? 1 02/16/2024 Housing Stability Answer Date Recorded What is your housing situation today? 1 02/16/2024 Interpersonal Safety Answer Date Record ed Are you being hit, kicked, p ushed or yelled at (see row info)? No 02/15/2024 Interpersonal Safety Abuse 12 - 18 Not on file 02/15/2024 Interpersonal Safety Ambulatory Vulnerability No t on file 02/15/2024 Utilities Answer Date Recorded Do you have trouble paying f or utilities (for example, heat, electricity, water, phone)? 1 02/16/2024 Comments No Sex and Gender Information Value Date Recorded Sex Assigned at Not on file Legal Sex Female 8:41 AM OBIEE REPORT DEVELOPER Gender Identity Not on file Sexual Orientation Not on file Obstetrics History Last Filed Vital Signs Vital Sign Reading Time Taken Comments Blood Pressure 137/59 03/07/2024 9:30 AM CDT Pulse 87 03/07/2024 9:45 AM CDT Temperature 36 C (96.8 F) 03/07/2024 9:45 AM CDT Respiratory Rate 16 03/07/2024 9:45 AM CDT Oxygen Saturation 96% 03/07/2024 9:45 AM CDT Inhaled Oxygen Concentration - - Weight 62.6 kg (138 lb) 03/07/2024 6:50 AM CDT Height 154.9 cm (5' 1) 03/07/2024 6:50 AM CDT Body Mass Index 26.07 03/07/2024 6:50 AM CDT Plan of Treatment Health Maintenance Due Date Last Done Comments Zoster (shingles) series for age 50+ (2 of 3) 05/19/2012 03/24/2012 Colonoscopy through age 75 07/28/2016 07/28/2011 Mammogram for age 45-75 10/23/2017 10/24/19 17, 09/04/2015, 01/29/2015, Additional history exists BMI (ht and wt on same day) for age 18+ 10/29/2018 10/29/2017, 07/22/2017, 04/19/2017, Additional history exists Depression screening for age 12+ 10/29/2018 10/29/2017, 07/22/2017, 04/19/2017, Additional history exists Tetanus booster 04/23/2020 04/23/2010 Lipids for age 45-75 10/29/2022 10/29/2017, 10/15/2016, 08/08/2015, Additional history exists Influenza Vaccine (#1) 2025 7, 03/18/2017, 03/11/2016, Additional history exists RSV vaccine for adults or (1 - 1-dose 75+ series) 2026 Hepatitis C screening for age 18-79 Completed 11/14/2014 DEXA/DXA scan for age 65+ Completed 10/23/2016, Pneumococcal series for age 50+ Completed 10/29/2017, 10/15/2016, 07/12/2012 Hepatitis B series for 19+ Aged Out N o longer eligible based on patient's age to complete this topic Medical Devices Implanted Type Area Guide Alpine Device Identifier Shelf Expiration Date Model / Serial / Lot Stent Uret [id number] Contour - [id number] Implanted:Qty: 1 on 10/21/2023 by Jatinder Cali MD at [facility] Right: Ureter [employer] Urology 06/22/2026 [id number] / / [id number] Stent Uret [id number] Contour - [id number] Implanted:Qty: 1 on 12/07/2023 by Jatinder Cali MD at [facility] Right: Ureter [employer] Urology 07/29/2026 [id number] 0 / / [id number] Stent Uret [id number] Contour - [id number] Implanted:Qty: 1 on 02/16/2024 by Reece Bermeo MD at [facility] Left: Ureter [employer] Urology 09/28/2026 [id number] 0 / / [id number] Stent Uret [id number] Contour - [id number] Implanted:Qty: 1 on 03/07/2024 by Jatinder Cali MD at [facility] Left: Ureter [employer] Urology 05/16/2026 [id number] / / [id number] Procedures Procedure Name Priority Date/Time Associated Diagnosis Comments LIPID PANEL Routine 10/29/2017 9:38 AM CDT Dyslipidemia XR MAMMO BILAT SCREENING Routine 10/23/2016 11:15 AM CDT Visit for screening mammogram XR DXA BONE DENSITY 2 SITES AXIAL Routine 10/23/2016 10:37 AM CDT Menopause ANTI HCV Routine 11/14/2014 10:34 AM CDT Need for hepatitis C screening test SCAN-COLONOSCOPY 07/28/2011 12:0 0 AM OBIEE REPORT DEVELOPER from Last 3 Months or Most Recently Relevant to Health Maintenance Results * (ABNORMAL) LIPID PANEL (10/29/2017 9:38 AM CDT) [facility] CHOLESTEROL,TOTAL 112 100 - 200 mg/dL 10/29/2017 10:09 AM T [facility] TRIGLYCERIDES 113 7 - 149 mg/dL 10/29/2017 10:09 AM T [facility] HDL CHOLESTEROL 36(L) >40 mg/dL 8 10:09 AM [facility] CHOL/HDL RATIO 3.11 <4.50 10/29/2017 10:09 AM [facility] LDL CHOLESTEROL 53(L) 100 - 159 mg/dL 10/29/2017 10:09 AM T [facility] PATIENT STATUS FASTING 10/29/2017 10:09 AM [facility] Blood BLOOD SPECIMEN / Unknown Venipuncture / Unknown 10/29/2017 9:38 AM CDT 10/29/2017 9:41 AM CDT Paul Campos MD CHEMISTRY Final Result Performing Organization Address City/State/[facility] Co de Phone Number [facility] [address] [place] [address] * XR MAMMO BILAT SCREENING [[id number]] (10/23/2016 11:15 AM CDT) Anatomical Region Laterality Modality BREASTS, Breast Left, Breast Right Bilateral Mammography, Other Impressions 10/27/2016 10:13 AM CDT There is no radiographic evidence for malignancy. Recommend annual mammograms. A lay language report of this examination will be provided to the patient. MAMMOGRAM ASSESSMENT: ACR 1 Negative Narrative 10/27/2016 10:13 AM CDT XR MAMMO BILAT SCREENING [[id number]] CLINICAL HISTORY: This is an asymptomatic 66 y.o. patient. INDICATION FOR EXAM: Mammogram Screening. TECHNIQUE: CC & MLO views were obtained. COMPARISON FILM: Yes 09/04/15 [facility] 01/19/14 [facility] FINDINGS: Mammographically, the breast tissue has scattered fibroglandular densities. There are no dominant masses, suspicious microcalcifications or areas of architectural distortion. us Paul Campos MD MAMMO Final Result * XR DXA BONE DENSITY 2 SITES AXIAL [[id number]] (10/23/2016 10:37 AM CDT) Anatomical Region Laterality Modality Spine, HIPS, HIPL, HIPR Other, O ther Impressions 10/27/2016 8:45 AM CDT This patient's T-score meets the World Health Organization (WHO) criteria for low bone density (osteopenia) at one or more measured sites (T-score between less than -1.0 and greater than -2.5). The risk of osteoporotic fracture increases approximately two-fold for each 1.0 SD decrease in T-score. FRAX (WHO Fracture Risk Assessment Tool) 10-year Probability of Fracture: Major Osteoporotic: 10.2% Hip: 1.5% Population: [place] () Based on Dual Femur Right Neck BMD More information and the calculation tool can be found at this website: http://www.shef.ac.uk/FRAX/ The scan details are available in the patient's chart in [employer]. Madhu Staley M.D. Body/Diagnostic Radiologist [email or web address] KIM/[email or web address] Narrative 10/27/2016 8:45 AM CDT [facility] Bone Density Report [employer] Scanner DIAGNOSTIC DXA BONE MINERAL DENSITY, 10/23/2016 CLINICAL HISTORY: This is a 63-year-old female patient. Height 5 feet 2 inches, weight 176 pounds. RISK FACTORS: The patient has estrogen deficiency. I have been told by my provider I have low bone density or osteopenia. History of fracture (minor trauma) or osteoporosis in a first-degree relative (father, mother, sibling). Medications: Synthroid. TECHNIQUE: Dual-energy x-ray absorptiometry system (axial skeleton). The patient was scanned on a [employer] scanner. The study was technically adequate. FINDINGS: BMD T-Score Z-Score Lumbar Spine (L1 to L4) 1.089 g/cm2 -0.8 0.2 Left Hip Femoral Neck 0.815 g/cm2 -1.6 -0.5 Left Total Hip 0.858 g/cm2 -1.2 -0.3 Right Hip Femoral Neck 0.763 g/cm2 -2.0 -0.8 Right Total Hip 0.821 g/cm2 -1.5 -0.6 Paul Campos MD DEXA Final Result * ANTI HCV [[id number]] (11/14/2014 10:34 AM CDT) HEPATITIS C ANTIBODY Non-Reacti ve Non-Reacti ve 11/14/2014 9:08 PM CDT [facility] Blood specimen (specimen) BLOOD SPECIMEN / Unknown Venipuncture / Unknown 11/14/2014 10:34 AM CDT 11/14/2014 10:42 AM CDT Narrative [facility] - 11/14/2014 9:08 PM CDT Antibodies to HCV not detected; does not exclude the possibility of exposure to HCV. Paul Campos MD SEND OUTS Final Result [facility] [address] [place] [address], [place] * SCAN-COLONOSCOPY (07/28/2011 12:00 AM OBIEE REPORT DEVELOPER) Narrative 07/28/2011 12:00 AM OBIEE REPORT DEVELOPER Procedure Note Scanner - 07/05/2013 5:51 PM CST us Scanner OTHER Final Result from Last 3 Months or Most Recently Relevant to Health Maintenance Insurance MEDICARE PROVIDER BASED MR [employer] [employer] MEDICARE ADVANTAGE MEDICARE PART A [place] [address] Advance Directives * Full Code (Latest Code Status on File) Date Activated Date Inactivated Comments 03/07/2024 6:39 AM 03/07/2024 12:30 PM Question Answer Comments Code Status Discussion: Not Discussed * Full Code Date Activated Date Inactivated Comments 02/16/2024 12:33 AM 02/17/2024 4:23 PM Question Answer Comments Code Status Discussion: Reviewed Preferences * Full Code Date Activated Date Inactivated Comments 12/07/2023 10:32 AM 12/10/2023 5:18 PM Question Answer Comments Code Status Discussion: Not Discussed * Full Code Date Activated Date Inactivated Comments 10/20/2023 6:24 PM 10/22/2023 3:22 PM Question Answer Comments Code Status Discussion: Reviewed Preferences Care Teams Molder Trimmer Relationship Specialty Start Date End Date Jocelin Oswald STONECUTTER [address] [place] [address] PCP - General Nurse Practitioner 03/02/24
--- NOTE | 2025-04-22 17:18 | ED.BACK ---
HPI - Back Pain/Injury General Time Seen by Provider: 17:18 Date Seen: 04/22/25 Chief Complaint: Back Injury/Pain Stated Complaint: Center Lower Back Pain Time Seen by Provider: 04/22/25 17:09 Source: patient and RN notes reviewed Mode of arrival: ambulatory Limitations: no limitations History of Present Illness HPI Narrative: This 74yo female is presenting to the ED with complaint of lumbar back pain. This started yesterday morning when she got up. Denies any trauma, no activities that she is aware that precipitated this. Pain does not go into her legs at all. No significant history of prior back issues. No recent illness, no fevers with this. No history of cancer. Hurts if she moves wrong. She had a left over Vicodin which she took around 2:00 p.m. today, did help some. She could barely get out of bed today. Patient does not smoke. No associated abdominal pain, bowel or bladder changes with these symptoms. MD elicited complaint: back pain Related Data Home Medications ?Medication ?Instructions ?Recorded ?Confirmed aspirin 81 mg tablet,delayed 81 mg PO DAILY 01/26/22 11/15/24 release (Adult Aspirin Regimen) coenzyme Q10 100 mg capsule 100 mg PO DAILY 01/26/22 11/15/24 multivitamin 1 tab PO DAILY 01/26/22 11/15/24 omega 5-zzs-vwz-fish oil 1,000 mg 1 cap PO DAILY 01/26/22 11/15/24 (120 mg-180 mg) capsule (Fish Oil) resveratrol-r.uwla-bjxltxi-hikwr 1 cap PO DAILY 01/26/22 11/15/24 sd-p.cusp.-C-pomg 200 mg-60 mg cap (Red Wine Extract) calcium 600 mg (as cap PO DAILY 12/14/23 11/15/24 carbonate)-vitamin D3 10 mcg (400 unit) capsule cranberry 500 mg capsule 500 mg PO QDAY 05/31/24 11/15/24 d-mannose 500 mg capsule mg PO QDAY 05/31/24 11/15/24 lactobacillus combination no.9 4 4,000 mmu cells PO QDAY 05/31/24 11/15/24 billion cell capsule (Adult 50 Plus Probiotic) Previous Rx's ?Medication ?Instructions ?Recorded Diabetic Test Strips #200 ea 11/11/23 ondansetron 4 mg disintegrating 4 mg PO Q8H PRN nausea and 03/13/24 tablet vomiting #12 tabs amlodipine 5 mg tablet 5 mg PO QPM #90 tabs 06/21/24 pen needle, diabetic 31 gauge x #100 ea 11/15/24 5/16 (Advocate Pen Needle) metformin 1,000 mg tablet 1,000 mg PO BIDWMEAL #180 tabs 12/12/24 glipizide 10 mg tablet 10 mg PO QDAY #90 tabs 01/12/25 empagliflozin 25 mg tablet 25 mg PO QAM #90 tabs 01/24/25 trazodone 50 mg tablet 100 mg (2 x 50 mg) PO QHS PRN 02/09/25 insomnia #90 tabs levothyroxine 125 mcg tablet 125 mcg PO DAILY #90 tabs 03/15/25 insulin glargine 100 unit/mL (3 33 unit (0.33 mL) subcut QPM #15 mL 03/28/ mL) subcutaneous pen atorvastatin 20 mg tablet 20 mg PO QPM #90 tabs 04/06/25 irbesartan 300 mg tablet 300 mg PO QDAY #90 tabs 04/06/25 Allergies Allergy/AdvReac Type Severity Reaction Status Date / Time lisinopril AdvReac Mild severe Verified 11/15/24 08:47 coughing Review of Systems Narrative: As per HPI. [facility] Medical History Diabetes mellitus, type II ?E11.9 - Type 2 diabetes mellitus without complications (ICD-10) Recurrent UTI ?N39.0 - Urinary tract infection, site not specified (ICD-10) Graves disease ?E05.00 - Thyrotoxicosis with diffuse goiter without thyrotoxic crisis or storm (ICD-10) Sepsis ?A41.9 - Sepsis, unspecified organism (ICD-10) Acute UTI ?N39.0 - Urinary tract infection, site not specified (ICD-10) Sinus tachycardia ?R00.0 - Tachycardia, unspecified (ICD-10) Hypercalcemia ?E83.52 - Hypercalcemia (ICD-10) Insomnia ?G47.00 - Insomnia, unspecified (ICD-10) Osteopenia ?M85.80 - Other specified disorders of bone density and structure, unspecified site (ICD-10) Hypothyroidism ?E03.9 - Hypothyroidism, unspecified (ICD-10) Hypertension ?I10 - Essential (primary) hypertension (ICD-10) Hyperlipidemia ?E78.5 - Hyperlipidemia, unspecified (ICD-10) Disorder of connective tissue ?M35.9 - Systemic involvement of connective tissue, unspecified (ICD-10) Surgical History History of lithotripsy ?Z98.890 - Other specified postprocedural states (ICD-10) History of colonoscopy ?Z98.890 - Other specified postprocedural states (ICD-10) History of Meckel's diverticulum ?Z87.19 - Personal history of other diseases of the digestive system (ICD-10) History of cervical polypectomy ?Z98.890 - Other specified postprocedural states (ICD-10) ?Z87.42 - Personal history of other diseases of the female genital tract (ICD-10) Family History Father Diabetes Other Sepsis Social History What is your current living situation?: I presently have a place to live Problems where you live: no known problems Problems where you live details: NA In the past 12 months, utilities in danger of being shut off: no In past 12 months, lack of transportation kept you from medical appts, meetings, work, or getting things needed for daily living: no In the past 12 mos, have been you worried that your food would run out before you had money to buy more?: never true In the past 12 mos, the food you bought just didn't last and you didn't have money to buy more?: never true Highest level of school completed/degree received: Bachelor's degree Smoking Status: Never smoker Second hand tobacco smoke exposure: No How often do you have a drink containing alcohol: never AUDIT-C Alcohol total score: 0 Non-prescribed substance use: denies use Caffeine: No How often does anyone, including family, friends and others, physically hurt you: never How often does anyone, including family, friends and others, insult or talk down to you: never How often does anyone, including family, friends and others, threaten you with harm: never How often does anyone, including family, friends and others, scream or curse at you: never service: No Exam Const: Vital Signs, click to edit/add: Vital Signs - 24 hr 04/22/25 17:10 Temperature 96.8 F L Pulse Rate [Pulse Oximeter] 84 Respiratory Rate 18 Blood Pressure [Ri ght Upper Arm] 156/74 H Pulse Oximetry 97 Oxygen Delivery Me thod Room Air This 74-year-old female is alert, interactive, no apparent distress. Her gait is normal, observed while in the ED. back inspected, no rash. No palpable midline tenderness or reproducible tenderness but it is the low lumbar area centrally in off to both sides where she is feeling the pain. Strength of her lower extremities is 5/5 and symmetric, she has no radiculopathy on history or exam. Documenting provider has reviewed patient's vital signs: yes Course Course ED Course: Will obtain basic lumbar imaging given patient's age and comorbidities. This could be degenerative half disease in her spine without radiculopathy, she could have nontraumatic compression fracture. There is no indication for any advanced imaging such as MR at this time. Will discuss discharge plan with patient once we have her imaging done. Reevaluation(s) Time of Reevaluation #1: 18:44 Reevaluation #1: Have reviewed x-ray report with patient. She has family with her now. We reviewed relative rest, recommendations to consider physical therapy, she can get this referral and follow-up with her primary care provider. Discussed prednisone use, we did go over that it can escalate her sugars and will do lower dose prednisone for her. Will have her try Flexeril. She will get her meds from [facility] as it is Wednesday night. Will have her do Tylenol baseline, she could do a little supplemental ibuprofen if this other outlined management strategies not enough. She is safe for further management and trial of outpatient treatment of acute low back pain without radiculopathy. Vital Signs Vital signs: Initial Vital Signs Temperature 96.8 F L 04/22/25 17:10 Temperature Source Temporal Artery Scan 04/22/25 17:10 Pulse Rate 84 04/22/25 17:10 Respiratory Rate 18 04/22/25 17:10 Blood Pressure 156/74 H 04/22/25 17:10 Blood Pressure Mean 101 04/22/25 17:10 Blood Pressure Position Sitting 04/22/25 17:10 Pulse Oximetry 97 04/22/25 17:10 Oxygen Delivery Method Room Air 04/22/25 17:10 Vital Signs Temperature 96.8 F L 04/22/25 17:10 Pulse Rate 84 04/22/25 17:10 Respiratory Rate 18 04/22/25 17:10 Blood Pressure 156/74 H 04/22/25 17:10 Pulse Oximetry 97 04/22/25 17:10 Oxygen Delivery Method Room Air 04/22/25 17:10 Temperature 96.8 F L 04/22/25 17:10 Pulse Rate 84 04/22/25 17:10 Respiratory Rate 18 04/22/25 17:10 Blood Pressure 156/74 H 04/22/25 17:10 Pulse Oximetry 97 04/22/25 17:10 Oxygen Delivery Method Room Air 04/22/25 17:10 MDM - Back Pain/Injury Imaging Data XR lumbar spine: Attestation: I have reviewed the pertinent imaging results. Radiologist's impression: Patient: UTE CARIAS Facility:?[facility] Patient ID:?[id number] Site Patient ID:?[id number]. Site :?[id number] Study:?XRay-Spine Lumbar XR LUMBAR SPINE-04/22/2025 5:32:26 PM Ordering Physician:Maurice Aldridge Final Report: Indication: Low back pain. No trauma. Technique: Two radiographic views of the lumbar spine. Comparison: None. Findings: Mild straightening of the typical lumbar lordosis. Mild levoconvex lumbar curvature. No acute fractures.Minor disc height loss L2-3.Facet arthrosis at the mid to lower lumbar levels. Bilateral SI joint arthrosis. Calcified lesion within the left pelvis, which could reflect a fibroid. Impression: 1. No acute osseous abnormalities. 2. Lumbar spondylosis with minor disc degeneration and mid to lower facet arthrosis. Mild levoconvex lumbar curve. Dictated by Robert Sood MD @ 04/22/2025 6:02:02 PM (Electronic Signature) Discharge Plan Discharge Clinical Impression: Acute low back pain Qualifiers: Back pain laterality: bilateral Sciatica presence: without sciatica Qualified Code(s): M54.50 - Low back pain, unspecified Degenerative arthritis of lumbar spine Qualifiers: Spinal osteoarthritis complication: without myelopathy or radiculopathy Qualified Code(s): M47.816 - Spondylosis without myelopathy or radiculopathy, lumbar region Patient Disposition: Home, Self-Care Condition: Stable Instructions: Acute Low Back Pain (ED), Degenerative Disc Disease (ED) Additional Instructions: Start prednisone and take 20 mg daily for 5 days. There will be 10 tablets but to minimize complications with diabetes, will only have you take 1 pill daily for 5 days, you will have leftover pills. Can use the Flexeril 10 mg up to 3 times a day as needed, 15 tablets given. Can use Tylenol 1000 mg 3 times a day baseline for pain. If needed, can use some supplemental ibuprofen per bottle directions but would minimize this for no longer than 3-5 days. Recommend scheduling a follow-up in clinic talk to your primary care provider. They can do a referral for physical therapy, do recommend doing this. If you feel your worsening, have further issues, please seek re-evaluation. Activity Level: Activity as Tolerated Prescriptions: No Action cranberry 500 mg capsule 500 mg PO QDAY Rx Instructions: administer with meals d-mannose 500 mg capsule PO QDAY Adult 50 Plus Probiotic 4 billion cell capsule 4,000 mmu cells PO QDAY Rx Instructions: administer with a meal (DME) pen needle, diabetic [Advocate Pen Needle] 31 gauge x 5/16 needle See Rx Instructions .Route Qty: 100 1RF Rx Instructions: As directed calcium carbonate-vitamin D3 600 mg-10 mcg (400 unit) capsule PO DAILY aspirin [Adult Aspirin Regimen] 81 mg tablet,delayed release (DR/EC) 81 mg PO DAILY coenzyme Q10 100 mg capsule 100 mg PO DAILY omega 3-nvs-hnj-fish oil [Fish Oil] 1,000 mg (120 mg-180 mg) capsule 1 cap PO DAILY ebxfks-ptg-dha-ypqhz-mwa-G-pom [Red Wine Extract] 200-60 mg capsule 1 cap PO DAILY multivitamin Tablet 1 tab PO DAILY (DME) Diabetic Test Strips Misc See Rx Instructions .Route Qty: 200 3RF Rx Instructions: As directed ondansetron 4 mg tablet,disintegrating 4 mg PO Q8H PRN (Reason: nausea and vomiting) Qty: 12 0RF amlodipine 5 mg tablet 5 mg PO QPM Qty: 90 3RF metformin 1,000 mg tablet 1,000 mg PO BIDWMEAL Qty: 180 1RF glipizide 10 mg tablet 10 mg PO QDAY Qty: 90 1RF empagliflozin 25 mg tablet 25 mg PO QAM Qty: 90 1RF trazodone 50 mg tablet 100 mg PO QHS PRN (Reason: insomnia) Qty: 90 1RF levothyroxine 125 mcg tablet 125 mcg PO DAILY Qty: 90 1RF insulin glargine 100 unit/mL (3 mL) insulin pen 33 unit subcut QPM Qty: 15 3RF irbesartan 300 mg tablet 300 mg PO QDAY Qty: 90 0RF atorvastatin 20 mg tablet 20 mg PO QPM Qty: 90 0RF Follow Up/Referrals: Jocelin Gerardo IT APPLICATION SUPPORT ANALYST [Primary Care Provider, Family Practice] Stand Alone Forms: MyHealth Info Instructions
--- NOTE | 2025-04-22 17:23 | CRLHL7_ITS ---
For Patients: As a result of the Century Cures Act, medical imaging exams and procedure reports are released immediately into your electronic medical record. You may view this report before your referring provider. If you have questions, please contact your health care provider. Indication: Low back pain. No trauma. Technique: Two radiographic views of the lumbar spine. Comparison: None. Findings: Mild straightening of the typical lumbar lordosis. Mild levoconvex lumbar curvature. No acute fractures.Minor disc height loss L2-3.Facet arthrosis at the mid to lower lumbar levels. Bilateral SI joint arthrosis. Calcified lesion within the left pelvis, which could reflect a fibroid. Impression: 1. No acute osseous abnormalities. 2. Lumbar spondylosis with minor disc degeneration and mid to lower facet arthrosis. Mild levoconvex lumbar curve. Dictated by Robert Sood MD @ 04/22/2025 6:02:02 PM (Electronically Signed)
== END 2025-04-22 19:15 | disposition home or self-care (01) ==
PROVIDERS: Emergency Provider Family Medicine; PCP Nurse Practitioner Family
DX: M47.816 Spondylosis without myelopathy or radiculopathy, lumbar region (principal)
CPT/HCPCS: 72100; 99283

== ENCOUNTER 2025-05-29 10:00 | Outpatient (RCR) | payer MEDICARE, SELFPAY ==
--- NOTE | 2025-05-09 15:30 | PT.OPE ---
[facility] PT [facility] Out[facility] Eval Start: 05/09/25 11:01 Freq: Status: Active Protocol: Document 05/09/25 15:07 GEORGIE (Rec: 05/09/25 15:28 GEORGIE [id number]) E-signed By Reece Jesus, PT, ATC Physical Therapy Outpatient Evaluation Insurance Information Insurance Name Medicare B,Blue [employer] Medical Diagnosis M47.816 Spondylosis without myelopathy or radiculopathy , lumbar region Treating Diagnosis low back pain Referring MD Jocelin Gerardo DRIVER'S EDUCATION INSTRUCTOR Subjective Preferred Name Namrata Loza reports the presence of constant lbp ranging in intensity between a 5-9/10. Onset insidious since . Pain location is central lower spine. No radicular complaints noted. No PMHx of injury to lower back or symptoms similar to these. Severe muscle spasms have limited her ability to perform nearly all ADL's or transitional movements. Flexeril and Prednisone have been taken with limited success. Recent prescription of Tramadol seems to have lessened severity of symptoms some. Estimates max standing or walking durations at 5 minutes. P Date of Last 05/03/25 Physician Visit Current Work Status Retired Precautions Weight Bearing Full Weight Bearing Status Therapy Limitations/ Not Limited Systems Review Objective Range of Motion Trunk: Flex -80%, pain producing. Ext -10% R and L SB and Rot -30% Palpation Lumbar paraspinals, quadratus lumborum and proximal gluteal muscles tight and spasm presence. Posture Stands in slight flexed trunk posture Sensation/Reflexes Normal and symmetric between LE's Other/Pertinent Vertebral hypomobility over R and L SI joints and L3-5 Objective vertebrae. Assessment Assessment/ Denia's lower back muscle spasms and pain is clearly Impression affecting her ability to perform bed mobility, transfers and walking. Examination supports degenerative changes in the lumbar vertebral complex and compensatory muscle guarding. Skilled PT is recommended to address her altered movement patterns, improve trunk ROM and strength while teaching improved posture and body mechanics. Primary Functional All transitional movement Limitations Walking for shopping or to get mail Standing to prepare meals Self care-showers Plan of Care Rehabilitation Good Potential Physical Therapy 1. Reduce lbp to 3/10 or less allowing improved Goals movement and transitional patterns. 2. Stand x 10 min.s to allow meal preparation. 3. Walk > 5 min.s allowing safe retrieval of mail. 4. Independent and correct HEP performance. Coordination/ Referral Source Communication With Frequency/Duration 6-12 visits Patient Will Be Independent w/HEP,Independently Progressing Discharged From Therapy Evaluation Billing Untimed Code 30 Treatment Minutes PT Eval No Charge No Complexity Low Certification Information Initial 05/09/25 Certification Date Ending Certification 08/09/25 Date Provider Signature Yes Required Provider Signature POC & Medical Necessity Shows Agreement With Physician NPI Number Write NPI# Here Physician Comment/ : Change Physician Signature Please Sign/Date Here & Date Requested
== END 2025-05-29 11:44 | disposition home or self-care (01) ==
PROVIDERS: PCP Nurse Practitioner Family; Visit Provider Nurse Practitioner Family
DX: M47.816 Spondylosis without myelopathy or radiculopathy, lumbar region (principal); Z51.89 Encounter for other specified aftercare
CPT/HCPCS: 97110; 97140; 97161

== ENCOUNTER 2025-06-13 10:34 | Outpatient (CLI) | payer MEDICARE, SELFPAY | END 2025-06-13 10:35 | disposition home or self-care (01) | PROVIDERS: PCP Nurse Practitioner Family; Visit Provider Nurse Practitioner Family | DX: E11.9 Type 2 diabetes mellitus without complications (principal); E78.2 Mixed hyperlipidemia; I10 Essential (primary) hypertension; E05.00 Thyrotoxicosis with diffuse goiter without thyrotoxic crisis or storm | CPT/HCPCS: 80053; 80061; 82043; 82570; 84439; 84443 ==